=== PATIENT | female | born 1975 | race Caucasian/White ===

== ENCOUNTER 2021-03-12 07:44 | Outpatient (REF) | payer MEDICARE, MEDICAID, SELFPAY ==
[2021-03-12 09:13] LABS: Alanine Aminotransferase 12 U/L (0-31); Cholesterol 180 mg/dL; HDL Cholesterol 67 mg/dL; LDL Cholesterol Calculated 83 mg/dl; Triglycerides 150 mg/dL
[2021-03-12 09:33] LABS: Vitamin D 25-OH Total 33.2 ng/mL (>30)
[2021-03-14 08:57] LABS: Vitamin B12 684 pg/mL (200-900)
== END 2021-03-12 07:45 | disposition home or self-care (01) ==
LOC: HO.LAB 07:44
PROVIDERS: PCP Internal Medicine; Visit Provider Internal Medicine
DX: Z00.00 Encounter for general adult medical examination without abnormal findings (principal); M85.80 Other specified disorders of bone density and structure, unspecified site; G40.909 Epilepsy, unspecified, not intractable, without status epilepticus
CPT/HCPCS: 36415; 80061; 82306; 82607; 84460

== ENCOUNTER 2021-12-24 20:16 | Emergency (ER) | payer MEDICARE, MEDICAID, SELFPAY ==
[2021-12-24 20:42] VITALS: BP 150/75; PULSE 82; RESP 16; TEMP 36.9; O2SAT 99; BMI 29.1
--- NOTE | 2021-12-24 22:27 | ED.GENADULT ---
HPI - General Adult General Chief complaint: Dental/Oral Stated complaint: tongue and throat pain Time Seen by Provider: 12/24/21 22:24 Source: patient Mode of arrival: ambulatory History of Present Illness HPI narrative: 46-year-old female was brought in from alf for evaluation of tongue and throat pain that she describes as surrounding the entire tongue, but denies any fevers, chills and denies any swelling/lips/face and states that she is able swallow without pain and denies any difficulty with breathing. Related Data Allergies Allergy/AdvReac Type Severity Reaction Status Date / Time amitriptyline Allergy Unknown Verified 12/24/21 20:51 amoxicillin Allergy Unknown Verified 12/24/21 20:51 budesonide Allergy Unknown Verified 12/24/21 20:51 [From Rhinocort Allergy] cheese Allergy Unknown Verified 12/24/21 20:51 Chocolate Allergy Unknown Verified 12/24/21 20:51 cigarette smoke Allergy Unknown Verified 12/24/21 20:51 ciprofloxacin [From Cipro] Allergy Unknown Verified 12/24/21 20:51 clarithromycin [From Biaxin] Allergy Unknown Verified 12/24/21 20:51 clonazepam [From Klonopin] Allergy Unknown Verified 12/24/21 20:51 fluticasone [From Flonase] Allergy Unknown Verified 12/24/21 20:51 monosodium glutamate [MSG] Allergy Unknown Verified 12/24/21 20:51 nut - unspecified Allergy Unknown Verified 12/24/21 20:51 Penicillins Allergy Unknown Verified 12/24/21 20:51 phenobarbital Allergy Unknown Verified 12/24/21 20:51 Seasonal Allergies Allergy Unknown Verified 12/24/21 20:51 strawberry Allergy Unknown Verified 12/24/21 20:51 Sulfa (Sulfonamide Allergy Unknown Verified 12/24/21 20:51 Antibiotics) sulfamethoxazole Allergy Unknown Verified 12/24/21 20:51 [From Bactrim] trimethoprim [From Bactrim] Allergy Unknown Verified 12/24/21 20:51 Review of Systems Review of Systems: Pertinent positives and negatives as stated in HPI 10 point review of systems is otherwise negative. PMFSH Past Medical History Source: nursing notes reviewed Social History Social History Advance Directives: No Advance Directives Information Provided: No Physical Exam ED Vital Signs: Vital Signs - 24 hr 04/16/22 20:42 Temperature 98.5 F Pulse Rate 82 Respiratory Rate 16 Blood Pressure 150/75 H Pulse Oximetry 99 BMI result Body Mass Index 29.1 VITAL SIGNS: Reviewed. GENERAL: Well developed, well nourished, in no acute distress. HEAD: Normocephalic/atraumatic EYES: PERRLA, EOMI EARS: Ext canals without abnormality OROPHARYNX: no oral lesions noted, posterior pharynx clear and non-erythematous without noted tonsillar enlargement/erythema/exudates, no evidence of oral thrush, no trismus NECK: Supple, no adenopathy LUNGS: Normal breath sounds, no stridor, no tachypnea/wheeze/rhonchi/rales. SpO2<99> CARDIOVASCULAR: Regular rate and rhythm without noted murmurs ABDOMEN: Soft, non-tender, non-distended with bowel sounds. SKIN: Inspection of the skin reveals no rashes NEUROLOGIC: Alert and Strength and sensation to light touch were grossly intact x 4. Course Course Course Narrative: 46-year-old female with history and clinical presentation mildly suggestive of pharyngitis and doubt foreign body, oral candidiasis, dental. Review of all investigations negative for acute findings and patient was discharged home in stable condition with instructions to do saline gargles. Medical Decision Making Lab Data Labs: Lab Results 12/24/21 Range/Units 22:33 S. pyogenes GrpA JIMMIE Negative (Negative) Discharge Plan Discharge Clinical Impression: Pharyngitis Patient Disposition: Home, Self-Care Instructions: Pharyngitis (ED) Additional Instructions: 1. Resume all home medications as prescribed. 2. Recommend saline gargles, this can be mixed by adding table salt to warm tap water and gargling for 5-10 minutes. 3. Follow-up with your primary care provider in the next 2-3 days. Return to the ER for worsening symptoms. Referrals: Jayden Vergara MD [Primary Care Provider] -
[2021-12-24] MEDS: Acetaminophen 325 MG TABLET 975 MG PO (22:34)
[2021-12-24 22:47] LABS: Strep A Nucleic Acid Negative (Negative)
== END 2021-12-24 23:12 | disposition home or self-care (01) ==
PROVIDERS: Emergency Provider Student in an Organized Health Care Education/Training Program; PCP Internal Medicine
DX: J02.9 Acute pharyngitis, unspecified (principal)
CPT/HCPCS: 36415; 87651; 99283

== ENCOUNTER 2022-01-01 18:46 | Inpatient (IN) | payer MEDICARE, MEDICAID, SELFPAY ==
--- NOTE | 2022-01-01 19:10 | ED.DIZZY ---
HPI - Dizziness General Chief Complaint: Dizziness Stated Complaint: DIZZY W/FALLS,NO INJURY PER EMS Time Seen by Provider: 01/01/22 19:10 Source: patient Mode of arrival: EMS History of Present Illness HPI Narrative: Patient mentally challenged with history of seizures, cerebral palsy on Tegretol and Depakote were apparently walking and felt dizzy no fall no headache no nausea no vomiting no fever no cough otherwise patient feeling is feeling okay Related Data Home Medications Medication Instructions Recorded Confirmed benztropine 0.5 mg tablet 1 tab PO DAILY 01/01/22 01/01/22 calcium carbonate 200 mg calcium 500 mg PO BID 01/01/22 01/01/22 (500 mg) chewable tablet (Calcium Antacid) carbamazepine 200 mg tablet 200 mg PO DAILY@1400 01/01/22 01/01/22 (Tegretol) carbamazepine 200 mg tablet 300 mg PO QAM 01/01/22 01/01/22 (Tegretol) carbamazepine 200 mg tablet 500 mg PO BEDTIME 01/01/22 01/01/22 (Tegretol) cholecalciferol (vitamin D3) 50 1 cap PO DAILY 01/01/22 01/01/22 mcg (2,000 unit) capsule cholestyramine-aspartame 4 gram 3 ea PO DAILY 01/01/22 01/01/22 oral powder (Cholestyramine Light) divalproex 250 mg tablet,delayed 2,000 mg PO TID 01/01/22 01/01/22 release escitalopram oxalate 5 mg tablet 1 tab PO DAILY 01/01/22 01/01/22 lacosamide 100 mg tablet (Vimpat) 100 mg PO BEDTIME 01/01/22 01/01/22 lorazepam 1 mg tablet 0.5 mg PO DAILY@1400 01/01/22 01/01/22 lorazepam 1 mg tablet 1 tab PO QAM 01/01/22 01/01/22 lorazepam 1 mg tablet 1.5 mg PO BEDTIME 01/01/22 01/01/22 olanzapine 2.5 mg tablet 1 tab PO BEDTIME 01/01/22 01/01/22 omeprazole 20 mg capsule,delayed 1 cap PO DAILY 01/01/22 01/01/22 release Allergies Allergy/AdvReac Type Severity Reaction Status Date / Time amitriptyline Allergy Unknown Verified 12/24/21 20:51 amoxicillin Allergy Unknown Verified 12/24/21 20:51 budesonide Allergy Unknown Verified 12/24/21 20:51 [From Rhinocort Allergy] cheese Allergy Unknown Verified 12/24/21 20:51 Chocolate Allergy Unknown Verified 12/24/21 20:51 cigarette smoke Allergy Unknown Verified 12/24/21 20:51 ciprofloxacin [From Cipro] Allergy Unknown Verified 12/24/21 20:51 clarithromycin [From Biaxin] Allergy Unknown Verified 12/24/21 20:51 clonazepam [From Klonopin] Allergy Unknown Verified 12/24/21 20:51 fluticasone [From Flonase] Allergy Unknown Verified 12/24/21 20:51 monosodium glutamate [MSG] Allergy Unknown Verified 12/24/21 20:51 nut - unspecified Allergy Unknown Verified 12/24/21 20:51 Penicillins Allergy Unknown Verified 12/24/21 20:51 phenobarbital Allergy Unknown Verified 12/24/21 20:51 Seasonal Allergies Allergy Unknown Verified 12/24/21 20:51 strawberry Allergy Unknown Verified 12/24/21 20:51 Sulfa (Sulfonamide Allergy Unknown Verified 12/24/21 20:51 Antibiotics) sulfamethoxazole Allergy Unknown Verified 12/24/21 20:51 [From Bactrim] trimethoprim [From Bactrim] Allergy Unknown Verified 12/24/21 20:51 Review of Systems Review of Systems: Yes all other systems are reviewed and are negative [facility] Social History Social History Advance Directives: No Advance Directives Information Provided: No Physical Exam Vital Signs: Vital Signs: Last Vital Signs Temp 98.9 F 01/01/22 20:25 Pulse 77 01/01/22 20:25 Resp 17 01/01/22 20:25 BP 145/65 H 01/01/22 20:25 Pulse Ox 97 01/01/22 20:25 BMI result Body Mass Index 25.0 Appearance: Alert. And awake mentally challenged Eyes: PERRLA, No Nystagmus ENT: Pharynx normal. Oral Mucosa moist Neck: Normal inspection. Neck supple. CVS: Normal heart rate and rhythm. Pulses normal. Respiratory: No respiratory distress. Equal air entry bilateral, no wheezing/rales/rhonchi Abdomen: Soft and nontender. Bowel sounds are present, Skin: Skin warm and dry. Normal skin color. Normal skin turgor. Extremities: No lower extremity edema. No calf tenderness Neuro: Oriented and awake at baseline No motor deficit. No sensory deficit.No cerebellar signs , cranial nerves II-XII intact MDM - Dizziness MDM Narrative Medical decision making narrative: Patient nonspecific dizziness lab workup shows hypotonic hyponatremia with sodium level of 125 likely [facility] will admit patient unable to get the stability tonight from our lab sample will be sent out. Patient does say that she drinks a lot during daytime will have fluid restrictions for now Differential Diagnosis Differential diagnosis: Likely adverse reaction to drug and orthostatic hypotension Lab Data Attestation: I reviewed the patient's lab results. Result diagrams: 01/01/22 20:18 01/01/22 20:18 Labs: Lab Results 01/01/22 01/01/22 01/01/22 Range/Units 20:18 20:18 20:18 WBC 6.7 (4.8-10.8) X10*3/uL RBC 3.43 L (4.20-5.50) X10*6/uL Hgb 11.3 L (12.0-16.0) g/dl Hct 31.5 L (37.0-47.0) % MCV 91.8 (80.0-98.0) fL MCH 32.9 (27.0-33.0) pg MCHC 35.9 H (31.0-35.0) g/dl RDW 12.4 (11.0-16.0) % Plt Count 166 (160-400) X10*3/uL MPV 10.4 (9.4-12.3) fL Immature Gran % (Auto) 0.3 (0.0-0.4) % Neut % (Auto) 22.7 L (45-73) % Lymph % (Auto) 68.1 H (20-40) % [place] % (Auto) 7.9 (2-11) % Eos % (Auto) 0.6 (0-4) % Baso % (Auto) 0.4 (0-2) % Lymph # (Auto) 4.6 (1.2-4.9) X10*3/uL [place] # (Auto) 0.5 (0.1-1.2) X10*3/uL Eos # (Auto) 0.0 (0.0-0.4) X10*3/uL Baso # (Auto) 0.0 (0.0-0.2) X10*3/uL Abs Immat Gran (auto) 0.02 (0.00-0.03) X10*3/uL Absolute Neuts (auto) 1.5 L (2.0-8.3) x10*3/uL Absolute Nucleated RBC 0.000 (0.0-0.012) X10*3/uL Nucleated RBC % (auto) 0.0 (0.0-0.2) /100WBC Smear Tech's Comments VERIFIED Sodium 125 L (135-145) mmol/L Potassium 4.4 (3.3-5.1) mmol/L Chloride 92 L (96-108) mmol/L Carbon Dioxide 27 (22-29) mmol/L Anion Gap 10 L (12-20) BUN 11 (9-16) mg/dL Creatinine 0.59 (0.5-1.4) mg/dL Estim Creat Clear Calc 109.5 Estimated GFR > 60 Random Glucose 97 (60-115) mg/dL Osmolality 262 L (281-305) mosm/kg Calcium 8.5 (8.4-10.2) mg/dL Total Bilirubin 0.2 (0.0-1.0) mg/dL AST 8 (5-31) U/L ALT 9 (0-31) U/L Alkaline Phosphatase 50 (39-117) U/L Total Protein 5.9 L (6.5-8.0) g/dL Albumin 3.7 (3.5-5.0) g/dL Urine Color Urine Appearance Urine pH (5.0-8.0) Ur Specific Collins (1.005-1.025) Urine Protein (NEG-TRACE) MG/DL Urine Glucose (UA) (NEG) MG/DL Urine Ketones (NEG) MG/DL Urine Blood (NEG) Urine Nitrite (NEG) Ur Leukocyte Esterase (NEG) Ur Random Sodium mmol/L Valproic Acid 97.1 (50.0-100.0) mcg/mL Carbamazepine 7.2 (5.0-12.0) mcg/mL COVID-19 (JAMESON) (Negative) COVID-19 Clin Com 01/01/22 01/01/22 01/01/22 Range/Units 21:59 21:59 22:33 WBC (4.8-10.8) X10*3/uL RBC (4.20-5.50) X10*6/uL Hgb (12.0-16.0) g/dl Hct (37.0-47.0) % MCV (80.0-98.0) fL MCH (27.0-33.0) pg MCHC (31.0-35.0) g/dl RDW (11.0-16.0) % Plt Count (160-400) X10*3/uL MPV (9.4-12.3) fL Immature Gran % (Auto) (0.0-0.4) % Neut % (Auto) (45-73) % Lymph % (Auto) (20-40) % [place] % (Auto) (2-11) % Eos % (Auto) (0-4) % Baso % (Auto) (0-2) % Lymph # (Auto) (1.2-4.9) X10*3/uL [place] # (Auto) (0.1-1.2) X10*3/uL Eos # (Auto) (0.0-0.4) X10*3/uL Baso # (Auto) (0.0-0.2) X10*3/uL Abs Immat Gran (auto) (0.00-0.03) X10*3/uL Absolute Neuts (auto) (2.0-8.3) x10*3/uL Absolute Nucleated RBC (0.0-0.012) X10*3/uL Nucleated RBC % (auto) (0.0-0.2) /100WBC Smear Tech's Comments Sodium (135-145) mmol/L Potassium (3.3-5.1) mmol/L Chloride (96-108) mmol/L Carbon Dioxide (22-29) mmol/L Anion Gap (12-20) BUN (9-16) mg/dL Creatinine (0.5-1.4) mg/dL Estim Creat Clear Calc Estimated GFR Random Glucose (60-115) mg/dL Osmolality (281-305) mosm/kg Calcium (8.4-10.2) mg/dL Total Bilirubin (0.0-1.0) mg/dL AST (5-31) U/L ALT (0-31) U/L Alkaline Phosphatase (39-117) U/L Total Protein (6.5-8.0) g/dL Albumin (3.5-5.0) g/dL Urine Color YELLOW Urine Appearance CLEAR Urine pH 7.0 (5.0-8.0) Ur Specific [place] 1.010 (1.005-1.025) Urine Protein NEG (NEG-TRACE) MG/DL Urine Glucose (UA) NEG (NEG) MG/DL Urine Ketones NEG (NEG) MG/DL Urine Blood NEG (NEG) Urine Nitrite NEG (NEG) Ur Leukocyte Esterase NEG (NEG) Ur Random Sodium 72.0 mmol/L Valproic Acid (50.0-100.0) mcg/mL Carbamazepine (5.0-12.0) mcg/mL COVID-19 (JAMESON) Negative (Negative) COVID-19 Clin Com See Note ECG Data Attestation: I personally reviewed and interpreted this ECG as follows: Interpretation: Normal sinus rhythm heart rate 72 beats per minute normal intervals normal axis no acute ST-T changes impression normal EKG Discharge Plan Discharge Clinical Impression: Acute hyponatremia, Dizziness Patient Disposition: Admitted As Inpatient
[2022-01-01 20:08] VITALS: BMI 25.0
[2022-01-01 20:25] VITALS: BP 145/65; PULSE 77; RESP 17; TEMP 37.2; O2SAT 97
[2022-01-01] MEDS: Meclizine HCl 25 MG TABLET PO (20:31)
[2022-01-01 20:33] LABS: Basophils Percent Auto 0.4 % (0-2); Eosinophils Percent Auto 0.6 % (0-4); Hematocrit 31.5 % (37.0-47.0); Hemoglobin 11.3 g/dl (12.0-16.0); Imm Gran Abs Auto 0.02 X10*3/uL (0.00-0.03); Imm Gran Pct Auto 0.3 % (0.0-0.4); Lymphocytes Absolute Auto 4.6 X10*3/uL (1.2-4.9); Lymphocytes Percent Auto 68.1 % (20-40); MANUAL DIFF FLAG SCAN; Mean Corpuscular HGB Conc 35.9 g/dl (31.0-35.0); Mean Corpuscular Hemoglobin 32.9 pg (27.0-33.0); Mean Corpuscular Volume 91.8 fL (80.0-98.0); Mean Platelet Volume 10.4 fL (9.4-12.3); Monocytes Absolute Auto 0.5 X10*3/uL (0.1-1.2); Monocytes Percent Auto 7.9 % (2-11); Neutrophils Absolute Auto 1.5 x10*3/uL (2.0-8.3); Neutrophils Percent Auto 22.7 % (45-73); Platelet Count 166 X10*3/uL (160-400); Red Blood Count 3.43 X10*6/uL (4.20-5.50); Red Cell Distribution Width 12.4 % (11.0-16.0); SCAN SMEAR FLAG 1; White Blood Count 6.7 X10*3/uL (4.8-10.8)
[2022-01-01 20:52] LABS: Alanine Aminotransferase 9 U/L (0-31); Albumin Level 3.7 g/dL (3.5-5.0); Alkaline Phosphatase 50 U/L (39-117); Anion Gap 10 (12-20); Aspartate Amino Transferase 8 U/L (5-31); Bilirubin Total 0.2 mg/dL (0.0-1.0); Blood Urea Nitrogen 11 mg/dL (9-16); Calcium 8.5 mg/dL (8.4-10.2); Carbon Dioxide 27 mmol/L (22-29); Chloride 92 mmol/L (96-108); Creatinine Clr Calc Pharmacy 109.5; Estimated Glomerular Filt Rate > 60; Glucose Random 97 mg/dL (60-115); Potassium 4.4 mmol/L (3.3-5.1); Sodium 125 mmol/L (135-145); Total Protein 5.9 g/dL (6.5-8.0)
[2022-01-01 20:57] LABS: Carbamazepine Tegretol 7.2 mcg/mL (5.0-12.0); Valproate 97.1 mcg/mL (50.0-100.0)
[2022-01-01 20:59] LABS: SLIDE REVIEW VERIFIED
[2022-01-01 22:05] LABS: Osmolality, Serum 262 mosm/kg (281-305)
[2022-01-01 22:06] LABS: Appearance Urine CLEAR; Color Urine YELLOW; Glucose Urine UA NEG (NEG); Leukocyte Esterase Urine NEG (NEG); Nitrite Urine NEG (NEG); Urine Blood NEG (NEG); Urine Ketones NEG (NEG); Urine Protein NEG (NEG-TRACE)
--- NOTE | 2022-01-01 22:11 | ECG_ITS ---
Test Reason : low sodium Blood Pressure : / mmHG Vent. Rate : 072 BPM Atrial Rate : 072 BPM P-R Int : 178 ms QRS Dur : 082 ms QT Int : 374 ms P-R-T Axes : 045 046 060 degrees QTc Int : 409 ms Normal sinus rhythm Normal ECG No previous ECGs available Referred By: Raymon Alvarez Electronically Signed By:DAVE GARCÍA
[2022-01-01 23:14] LABS: COVID-19 Test Negative (Negative)
[2022-01-02] VITALS (9 sets, daily range): BP systolic 100–170; BP diastolic 55–89; PULSE 61–104; RESP 16–87; TEMP 36.3–36.8; O2SAT 93–99
[2022-01-02] MEDS: OLANZapine 2.5 MG TABLET PO ×2 (00:21→22:02)
[2022-01-02] MEDS: LORazepam 0.5 MG TABLET 1.5 MG PO ×2 (00:22→22:04)
[2022-01-02] MEDS: Divalproex Sodium 500 MG TABLET.DR 2000 MG PO ×4 (00:23→22:03)
[2022-01-02] MEDS: Enoxaparin Sodium 40 MG/0.4 ML SYRINGE SUBCUT ×2 (00:23→23:21)
[2022-01-02] MEDS: carBAMazepine 200 MG TABLET 500 MG PO ×2 (01:07→22:01)
--- NOTE | 2022-01-02 04:53 | PC.NURSE ---
I assumed nursing care of Kylie upon her arrival to bed 21 from EMS from local halfway for evaluation of lightheadedness/dizziness - primarily upon changing positions. On arrival she is alert, oriented to person and place but not to time - consistent with her baseline per halfway staff at bedside. She makes eye contact with Rn and is calm and cooperative. Respirations are non-labored, room air sat's 95% or better, no cyanosis. SHe has ambulated to and from the bathrpoom with one stand by assist with slow and steady gait. No nausea. No vomiting. she has been taking PO fluids in ED (with meds) without difficulty. [facility] staff has remained at the bedside. Pt has voided multiple times - in the first three hours of her ER visit I believe she ambulated to the bathroom a total of 6 times to void, each time voiding 'a lot per the pt. We will continue to monitor Kylie.
[2022-01-02] MEDS: LORazepam 2 MG/ML VIAL 0.5 MG IVPUSH (06:03)
--- NOTE | 2022-01-02 06:50 | PM.IMHP ---
History of Present Illness Date of Service: 01/01/22 Chief Complaint: Weakness 46-year-old female with history of cerebral palsy, history of seizures presents to the hospital with complaints of some dizziness and weakness. According to her staff at bedside, they were playing in the park, patient was goofing around, dancing when she tore old and fell. They went home, and on the way home patient complained of feeling weak and her legs gave out and buckled and therefore patient was brought into the hospital. Patient currently is alert, oriented to self and place, she has no acute complaints including no headache, no change in vision, no chest pain palpitations, no dizziness, no abdominal pain nausea or vomiting, no diarrhea constipation, no urinary symptoms and no lower extremity edema. On arrival to the ED patient hemodynamically stable with no significant abnormal vitals Labs are significant for hemoglobin of 11.3, hematocrit 31.5, sodium of 125, potassium 4.4, serum osmolality of 262, and urine osmolality pending. Urine random sodium of 72. When I asked more extensive history on oral intake, patient and her staff at bedside reports that she drinks more than 8 0.5 L bottles of water daily as well as 2 large bottles of juice. Patient will be admitted for further management of her hyponatremia Review of Systems Review of Systems: Yes all other systems are reviewed and are negative [facility] Medical History (Updated 01/02/22 @ 06:53 by Elizabeth Colorado MD) Cerebral palsy Seizure disorder Family History (Updated 01/02/22 @ 06:53 by Elizabeth Colorado MD) Other No family history of coronary artery disease Surgical History (Updated 01/02/22 @ 06:53 by Elizabeth Colorado MD) History of hysterectomy Social History (Updated 01/02/22 @ 06:54 by Elizabeth Colorado MD) Housing: Other Housing Other:: Lives in a alf Alcohol intake: never Patient Tobacco Use Status: Never used Tobacco Use of substances other than those prescribed or required for medical reasons: No Advance Directives: No Advance Directives Information Provided: No Meds Allergies Allergy/AdvReac Type Severity Reaction Status Date / Time amitriptyline Allergy Unknown Verified 12/24/21 20:51 amoxicillin Allergy Unknown Verified 12/24/21 20:51 budesonide Allergy Unknown Verified 12/24/21 20:51 [From Rhinocort Allergy] cheese Allergy Unknown Verified 12/24/21 20:51 Chocolate Allergy Unknown Verified 12/24/21 20:51 cigarette smoke Allergy Unknown Verified 12/24/21 20:51 ciprofloxacin [From Cipro] Allergy Unknown Verified 12/24/21 20:51 clarithromycin [From Biaxin] Allergy Unknown Verified 12/24/21 20:51 clonazepam [From Klonopin] Allergy Unknown Verified 12/24/21 20:51 fluticasone [From Flonase] Allergy Unknown Verified 12/24/21 20:51 monosodium glutamate [MSG] Allergy Unknown Verified 12/24/21 20:51 nut - unspecified Allergy Unknown Verified 12/24/21 20:51 Penicillins Allergy Unknown Verified 12/24/21 20:51 phenobarbital Allergy Unknown Verified 12/24/21 20:51 Seasonal Allergies Allergy Unknown Verified 12/24/21 20:51 strawberry Allergy Unknown Verified 12/24/21 20:51 Sulfa (Sulfonamide Allergy Unknown Verified 12/24/21 20:51 Antibiotics) sulfamethoxazole Allergy Unknown Verified 12/24/21 20:51 [From Bactrim] trimethoprim [From Bactrim] Allergy Unknown Verified 12/24/21 20:51 Active Medications: Current Medications Acetaminophen (Acetaminophen 325 Mg Tablet) 650 mg PO Q6H PRN PRN Reason: Pain, Mild (Pain Scale 1-3) Benztropine Mesylate (Benztropine Mesylate 0.5 Mg Tablet) 0.5 mg PO DAILY [facility] Calcium Carbonate (Calcium Carbonate 500 Mg Tablet) 500 mg PO BID [facility] Carbamazepine (Carbamazepine 200 Mg Tablet) 200 mg PO DAILY@1400 [facility] Carbamazepine (Carbamazepine 200 Mg Tablet) 300 mg PO DAILY [facility] Last Admin: 01/02/22 00:31 Dose: Not Given Documented by: Carbamazepine (Carbamazepine 200 Mg Tablet) 500 mg PO BEDTIME [facility] Last Admin: 01/02/22 01:07 Dose: 500 mg Documented by: Cholestyramine Resin (Cholestyramine (With Sugar) 4 Gm Powd.Pack) 4 gm PO DAILY [facility] Divalproex Sodium (Divalproex Sodium 500 Mg Tablet.Dr) 2,000 mg PO TID [facility] Last Admin: 01/02/22 00:23 Dose: 2,000 mg Documented by: Docusate Sodium (Docusate Sodium 100 Mg Capsule) 100 mg PO DAILY PRN PRN Reason: Constipation Enoxaparin Sodium (Enoxaparin Sodium 40 Mg/0.4 Ml Syringe) 40 mg SUBCUT Q24H [facility] Last Admin: 01/02/22 00:23 Dose: 40 mg Documented by: Escitalopram Oxalate (Escitalopram Oxalate 5 Mg Tablet) 5 mg PO DAILY [facility] Lacosamide (Lacosamide 100 Mg Tablet) 100 mg PO BEDTIME [facility] Lorazepam (Lorazepam 0.5 Mg Tablet) 0.5 mg PO DAILY@1400 [facility] Lorazepam (Lorazepam 1 Mg Tablet) 1 mg PO DAILY [facility] Last Admin: 01/02/22 00:32 Dose: Not Given Documented by: Lorazepam (Lorazepam 0.5 Mg Tablet) 1.5 mg PO BEDTIME [facility] Last Admin: 01/02/22 00:22 Dose: 1.5 mg Documented by: Olanzapine (Olanzapine 2.5 Mg Tablet) 2.5 mg PO BEDTIME [facility] Last Admin: 01/02/22 00:21 Dose: 2.5 mg Documented by: Omeprazole (Omeprazole 20 Mg Capsule.Dr) 20 mg PO DAILY [facility] Ondansetron HCl (Ondansetron Hcl 4 Mg/2 Ml Vial) 4 mg IVPUSH Q8H PRN PRN Reason: Nausea and Vomiting Sodium Chloride (0.9 % Sodium Chloride Flush 3 Ml Syringe) 3 ml IVFLUSH QSHIFT [facility] Last Admin: 01/02/22 00:30 Dose: Not Given Documented by: Vitamin D (Cholecalciferol (Vitamin D3) 25 Mcg Tablet) 50 mcg PO DAILY [facility] Home Medications Medication Instructions Recorded Confirmed Last Taken Type benztropine 0.5 mg tablet 1 tab PO DAILY 01/01/22 01/01/22 Unknown History calcium carbonate 200 mg calcium 500 mg PO BID 01/01/22 01/01/22 Unknown History (500 mg) chewable tablet (Calcium Antacid) carbamazepine 200 mg tablet 200 mg PO DAILY@1400 01/01/22 01/01/22 Unknown History (Tegretol) carbamazepine 200 mg tablet 300 mg PO QAM 01/01/22 01/01/22 Unknown History (Tegretol) carbamazepine 200 mg tablet 500 mg PO BEDTIME 01/01/22 01/01/22 Unknown History (Tegretol) cholecalciferol (vitamin D3) 50 1 cap PO DAILY 01/01/22 01/01/22 Unknown History mcg (2,000 unit) capsule cholestyramine-aspartame 4 gram 3 ea PO DAILY 01/01/22 01/01/22 Unknown History oral powder (Cholestyramine Light) divalproex 250 mg tablet,delayed 2,000 mg PO TID 01/01/22 01/01/22 Unknown History release escitalopram oxalate 5 mg tablet 1 tab PO DAILY 01/01/22 01/01/22 Unknown History lacosamide 100 mg tablet (Vimpat) 100 mg PO BEDTIME 01/01/22 01/01/22 Unknown History lorazepam 1 mg tablet 0.5 mg PO DAILY@1400 01/01/22 01/01/22 Unknown History lorazepam 1 mg tablet 1 tab PO QAM 01/01/22 01/01/22 Unknown History lorazepam 1 mg tablet 1.5 mg PO BEDTIME 01/01/22 01/01/22 Unknown History olanzapine 2.5 mg tablet 1 tab PO BEDTIME 01/01/22 01/01/22 Unknown History omeprazole 20 mg capsule,delayed 1 cap PO DAILY 01/01/22 01/01/22 Unknown History release Physical Exam Vital Signs and Narrative: Vital Signs: Last Vital Signs Temp 98.9 F 01/01/22 20:25 Pulse 76 01/02/22 06:07 Resp 19 01/02/22 06:07 BP 134/85 01/02/22 06:07 Pulse Ox 95 01/02/22 06:07 BMI result Body Mass Index 25.0 Const: Other: Patient awake alert, clinically appears happy smiling, laughing, conversing with her staff at bedside, she is oriented to self General: cooperative and no acute distress Eyes: General: appearance normal, both eyes and all related structures Pupils: Equal, round and reactive pupils present Resp: Effort & Inspection: normal respiratory effort Auscultation: clear to auscultation bilaterally Cardio: Rate: regular rate Rhythm: regular rhythm GI: Palpation (GI): Soft to palpation Auscultation: normal bowel sounds Skin: General skin exam: no rashes or lesions noted Neuro: Cranial nerves: Yes Equal, round and reactive pupils present Extrem: General: Yes normal to inspection and Yes no pedal edema Results Labs CBC and Chem 7: 01/01/22 20:18 01/01/22 20:18 Labs: Laboratory Results - last 24 hr 01/01/22 01/01/22 01/01/22 20:18 20:18 20:18 MCV 91.8 MCH 32.9 MCHC 35.9 H RDW 12.4 Plt Count 166 MPV 10.4 Immature Gran % (Auto) 0.3 Neut % (Auto) 22.7 L Lymph % (Auto) 68.1 H [place] % (Auto) 7.9 Eos % (Auto) 0.6 Baso % (Auto) 0.4 Lymph # (Auto) 4.6 [place] # (Auto) 0.5 Eos # (Auto) 0.0 Baso # (Auto) 0.0 Abs Immat Gran (auto) 0.02 Absolute Neuts (auto) 1.5 L Absolute Nucleated RBC 0.000 Nucleated RBC % (auto) 0.0 Smear Tech's Comments VERIFIED Sodium 125 L Anion Gap 10 L Estim Creat Clear Calc 109.5 Estimated GFR > 60 Random Glucose 97 Osmolality 262 L Calcium 8.5 Total Bilirubin 0.2 AST 8 ALT 9 Alkaline Phosphatase 50 Total Protein 5.9 L Albumin 3.7 Urine Color Urine Appearance Urine pH Ur Specific [place] Urine Protein Urine Glucose (UA) Urine Ketones Urine Blood Urine Nitrite Ur Leukocyte Esterase Ur Random Sodium Valproic Acid 97.1 Carbamazepine 7.2 COVID-19 ([facility]) COVID-19 Clin Com 01/01/22 01/01/22 01/01/22 21:59 21:59 22:33 MCV MCH MCHC RDW Plt Count MPV Immature Gran % (Auto) Neut % (Auto) Lymph % (Auto) [place] % (Auto) Eos % (Auto) Baso % (Auto) Lymph # (Auto) [place] # (Auto) Eos # (Auto) Baso # (Auto) Abs Immat Gran (auto) Absolute Neuts (auto) Absolute Nucleated RBC Nucleated RBC % (auto) Smear Tech's Comments Sodium Anion Gap Estim Creat Clear Calc Estimated GFR Random Glucose Osmolality Calcium Total Bilirubin AST ALT Alkaline Phosphatase Total Protein Albumin Urine Color YELLOW Urine Appearance CLEAR Urine pH 7.0 Ur Specific [place] 1.010 Urine Protein NEG Urine Glucose (UA) NEG Urine Ketones NEG Urine Blood NEG Urine Nitrite NEG Ur Leukocyte Esterase NEG Ur Random Sodium 72.0 Valproic Acid Carbamazepine COVID-19 ([facility]) Negative COVID-19 Clin Com See Note Assessment and Plan (1) Acute hyponatremia: Status: Acute Plan 46-year-old female with past medical history of seizure disorder as well as cerebral palsy presents to the hospital with weakness found to have hyponatremia # acute hyponatremia - likely secondary to increased water intake - patient and staff report the patient has been drinking >10 cups of water/juice daily - will place on PO restriction to 1200 - nephrology consuled - BMP q4H , adjust plan accordingly - pending UA osmolality # Seizure disorder - continue home meds # Cerebral plasy - continue home meds DVT ppx: Lovenox give hyponatremia, pt will require minimum medically necessary 2 night hospital stay for further management and monitoring Quality Stroke Does the patient have a stroke diagnosis?: No VTE Prior VTE?: No VTE Risk Level:: Medical - moderate - high VTE Device Contraindication: Treatment Not Indicated VTE Drug Contraindication: N/A - Med Ordered
[2022-01-02 07:04] LABS: Osmolality Urine 285 mosm/kg (373-1093)
[2022-01-02 07:32] LABS: Anion Gap 13 (12-20); Blood Urea Nitrogen 8 mg/dL (9-16); Calcium 9.5 mg/dL (8.4-10.2); Carbon Dioxide 28 mmol/L (22-29); Chloride 95 mmol/L (96-108); Creatinine Clr Calc Pharmacy 111.4; Estimated Glomerular Filt Rate > 60; Glucose Random 86 mg/dL (60-115); Potassium 4.3 mmol/L (3.3-5.1); Sodium 132 mmol/L (135-145)
[2022-01-02 07:33] LABS: Anion Gap 12 (12-20); Blood Urea Nitrogen 8 mg/dL (9-16); Calcium 9.3 mg/dL (8.4-10.2); Carbon Dioxide 28 mmol/L (22-29); Chloride 96 mmol/L (96-108); Creatinine Clr Calc Pharmacy 111.4; Estimated Glomerular Filt Rate > 60; Glucose Random 86 mg/dL (60-115); Potassium 4.3 mmol/L (3.3-5.1); Sodium 132 mmol/L (135-145)
--- NOTE | 2022-01-02 07:57 | HO.PM.IMPN ---
Subjective Subjective Date of Service: 01/02/22 Review of Systems Follow up Hyponatremia Feels fine no pain feels thirsty Physical Exam Vital Signs: Vital Signs: Last Vital Signs Temp 98.0 F 01/02/22 07:18 Pulse 83 01/02/22 07:18 Resp 16 01/02/22 07:18 BP 135/89 01/02/22 07:18 Pulse Ox 96 01/02/22 07:18 BMI result Body Mass Index 25.0 Appearing in no acute distress lung sounds are clear to auscultation heart regular rate rhythm, clear S1, S2 positive bowel sounds, abdomen is soft, nontender neuro patient is alert x3, no focal deficits Objective Data Active Medications Acetaminophen (Acetaminophen 325 Mg Tablet) 650 mg PO Q6H PRN PRN Reason: Pain, Mild (Pain Scale 1-3) Benztropine Mesylate (Benztropine Mesylate 0.5 Mg Tablet) 0.5 mg PO DAILY [facility] Calcium Carbonate (Calcium Carbonate 500 Mg Tablet) 500 mg PO BID [facility] Carbamazepine (Carbamazepine 200 Mg Tablet) 200 mg PO DAILY@1400 [facility] Carbamazepine (Carbamazepine 200 Mg Tablet) 300 mg PO DAILY [facility] Last Admin: 01/02/22 00:31 Dose: Not Given Documented by: RAMILA Non-Admin Reason: See Note Carbamazepine (Carbamazepine 200 Mg Tablet) 500 mg PO BEDTIME [facility] Last Admin: 01/02/22 01:07 Dose: 500 mg Documented by: RAMILA Cholestyramine Resin (Cholestyramine (With Sugar) 4 Gm Powd.Pack) 4 gm PO DAILY [facility] Divalproex Sodium (Divalproex Sodium 500 Mg Tablet.) 2,000 mg PO TID [facility] Last Admin: 01/02/22 00:23 Dose: 2,000 mg Documented by: RAMILA Docusate Sodium (Docusate Sodium 100 Mg Capsule) 100 mg PO DAILY PRN PRN Reason: Constipation Enoxaparin Sodium (Enoxaparin Sodium 40 Mg/0.4 Ml Syringe) 40 mg SUBCUT Q24H [facility] Last Admin: 01/02/22 00:23 Dose: 40 mg Documented by: RAMILA Escitalopram Oxalate (Escitalopram Oxalate 5 Mg Tablet) 5 mg PO DAILY [facility] Lacosamide (Lacosamide 100 Mg Tablet) 100 mg PO BEDTIME [facility] Lorazepam (Lorazepam 0.5 Mg Tablet) 0.5 mg PO DAILY@1400 [facility] Lorazepam (Lorazepam 1 Mg Tablet) 1 mg PO DAILY [facility] Last Admin: 01/02/22 00:32 Dose: Not Given Documented by: RAMILA Non-Admin Reason: See Note Lorazepam (Lorazepam 0.5 Mg Tablet) 1.5 mg PO BEDTIME [facility] Last Admin: 01/02/22 00:22 Dose: 1.5 mg Documented by: RAMILA Olanzapine (Olanzapine 2.5 Mg Tablet) 2.5 mg PO BEDTIME [facility] Last Admin: 01/02/22 00:21 Dose: 2.5 mg Documented by: RAMILA Omeprazole (Omeprazole 20 Mg Capsule.Dr) 20 mg PO DAILY [facility] Ondansetron HCl (Ondansetron Hcl 4 Mg/2 Ml Vial) 4 mg IVPUSH Q8H PRN PRN Reason: Nausea and Vomiting Sodium Chloride (0.9 % Sodium Chloride Flush 3 Ml Syringe) 3 ml IVFLUSH QSHIFT [facility] Last Admin: 01/02/22 00:30 Dose: Not Given Documented by: RAMILA Non-Admin Reason: Previously Administered Vitamin D (Cholecalciferol (Vitamin D3) 25 Mcg Tablet) 50 mcg PO DAILY [facility] Labs CBC & Chem 7: 01/01/22 20:18 01/02/22 10:06 Labs: Laboratory Results - last 24 hr 01/01/22 01/01/22 01/01/22 20:18 20:18 20:18 MCV 91.8 MCH 32.9 MCHC 35.9 H RDW 12.4 Plt Count 166 MPV 10.4 Immature Gran % (Auto) 0.3 Neut % (Auto) 22.7 L Lymph % (Auto) 68.1 H [place] % (Auto) 7.9 Eos % (Auto) 0.6 Baso % (Auto) 0.4 Lymph # (Auto) 4.6 [place] # (Auto) 0.5 Eos # (Auto) 0.0 Baso # (Auto) 0.0 Abs Immat Gran (auto) 0.02 Absolute Neuts (auto) 1.5 L Absolute Nucleated RBC 0.000 Nucleated RBC % (auto) 0.0 Smear Tech's Comments VERIFIED Anion Gap 10 L Estim Creat Clear Calc 109.5 Estimated GFR > 60 Random Glucose 97 Osmolality 262 L Calcium 8.5 Total Bilirubin 0.2 AST 8 ALT 9 Alkaline Phosphatase 50 Total Protein 5.9 L Albumin 3.7 Urine Color Urine Appearance Urine pH Ur Specific [place] Urine Protein Urine Glucose (UA) Urine Ketones Urine Blood Urine Nitrite Ur Leukocyte Esterase Urine Osmolality Ur Random Sodium Valproic Acid 97.1 Carbamazepine 7.2 COVID-19 ([facility]) COVID-19 Clin Com 01/01/22 01/01/22 01/01/22 21:59 21:59 21:59 MCV MCH MCHC RDW Plt Count MPV Immature Gran % (Auto) Neut % (Auto) Lymph % (Auto) [place] % (Auto) Eos % (Auto) Baso % (Auto) Lymph # (Auto) [place] # (Auto) Eos # (Auto) Baso # (Auto) Abs Immat Gran (auto) Absolute Neuts (auto) Absolute Nucleated RBC Nucleated RBC % (auto) Smear Tech's Comments Anion Gap Estim Creat Clear Calc Estimated GFR Random Glucose Osmolality Calcium Total Bilirubin AST ALT Alkaline Phosphatase Total Protein Albumin Urine Color YELLOW Urine Appearance CLEAR Urine pH 7.0 Ur Specific [place] 1.010 Urine Protein NEG Urine Glucose (UA) NEG Urine Ketones NEG Urine Blood NEG Urine Nitrite NEG Ur Leukocyte Esterase NEG Urine Osmolality 285 L Ur Random Sodium 72.0 Valproic Acid Carbamazepine COVID-19 ([facility]) COVID-19 Clin Com 01/01/22 01/02/22 01/02/22 22:33 07:08 07:08 MCV MCH MCHC RDW Plt Count MPV Immature Gran % (Auto) Neut % (Auto) Lymph % (Auto) [place] % (Auto) Eos % (Auto) Baso % (Auto) Lymph # (Auto) [place] # (Auto) Eos # (Auto) Baso # (Auto) Abs Immat Gran (auto) Absolute Neuts (auto) Absolute Nucleated RBC Nucleated RBC % (auto) Smear Tech's Comments Anion Gap 12 13 Estim Creat Clear Calc 111.4 111.4 Estimated GFR > 60 > 60 Random Glucose 86 86 Osmolality Calcium 9.3 D 9.5 Total Bilirubin AST ALT Alkaline Phosphatase Total Protein Albumin Urine Color Urine Appearance Urine pH Ur Specific [place] Urine Protein Urine Glucose (UA) Urine Ketones Urine Blood Urine Nitrite Ur Leukocyte Esterase Urine Osmolality Ur Random Sodium Valproic Acid Carbamazepine COVID-19 ([facility]) Negative COVID-19 Clin Com See Note Assessment and Plan (1) Acute hyponatremia: Status: Acute Plan 46-year-old female with past medical history of seizure disorder as well as cerebral palsy presents to the hospital with weakness found to have hyponatremia acute hyponatremia likely secondary to increased water intake patient and staff report the patient has been drinking >10 cups of water/juice daily will place on PO restriction to 1200 nephrology following BMP q4H , adjust plan accordingly pending UA osmolality Seizure disorder continue home meds Cerebral plasy continue home meds DVT ppx: Lovenox Attending Dr. Cowan Full code Patient requires continued hospitalization for monitoring of hyponatremia secondary to increased fluid intake Quality Stroke Does the patient have a stroke diagnosis?: No VTE Prior VTE?: No VTE Risk Level:: Medical - moderate - high VTE Device Contraindication: Treatment Not Indicated VTE Drug Contraindication: N/A - Med Ordered
[2022-01-02] MEDS: Benztropine Mesylate 0.5 MG TABLET PO (08:07)
[2022-01-02] MEDS: Cholecalciferol (Vitamin D3) 25 MCG TABLET 50 MCG PO (08:07)
[2022-01-02] MEDS: 0.9 % Sodium Chloride Flush 3 ML SYRINGE IVFLUSH ×3 (08:07→22:05)
[2022-01-02] MEDS: LORazepam 1 MG TABLET PO (08:07)
[2022-01-02] MEDS: Omeprazole 20 MG CAPSULE.DR PO (08:07)
[2022-01-02] MEDS: Escitalopram Oxalate 5 MG TABLET PO (08:07)
[2022-01-02] MEDS: carBAMazepine 200 MG TABLET 300 MG PO (08:07)
[2022-01-02] MEDS: Cholestyramine (With Sugar) 4 GM POWD.PACK PO (08:07)
--- NOTE | 2022-01-02 08:09 | PHA.MEDREC ---
Pharmacy Consult ? Medication Reconciliation Pharmacy has completed the medication reconciliation. No remarkable issues. Xin Cuadra, SheaD
[2022-01-02 10:27] LABS: Sodium 131 mmol/L (135-145)
[2022-01-02 10:33] LABS: Anion Gap 12 (12-20); Blood Urea Nitrogen 7 mg/dL (9-16); Calcium 9.9 mg/dL (8.4-10.2); Carbon Dioxide 30 mmol/L (22-29); Chloride 95 mmol/L (96-108); Creatinine Clr Calc Pharmacy 111.4; Estimated Glomerular Filt Rate > 60; Glucose Random 94 mg/dL (60-115); Potassium 4.7 mmol/L (3.3-5.1); Sodium 132 mmol/L (135-145)
--- NOTE | 2022-01-02 11:19 | PC.NURSE ---
rosmery nurse at [facility] [phone]
--- NOTE | 2022-01-02 11:27 | PM.CNNEP ---
History of Present Illness Reason for Consult Consult date: 01/02/22 Chief Complaint Chief complaint: Hyponatremia History of Present Illness Narrative: 46-year-old female with history of cerebral palsy, history of seizures presents to the hospital with complaints of some dizziness and weakness.? According to her staff at bedside, they were playing in the park, patient was goofing around, dancing when she tore old and fell.? They went home, and on the way home patient complained of feeling weak and her legs gave out and buckled and therefore patient was brought into the hospital.? Patient currently is alert, oriented to self and place, she has no acute complaints including no headache, no change in vision, no chest pain palpitations, no dizziness, no abdominal pain nausea or vomiting, no diarrhea constipation, no urinary symptoms and no lower extremity edema. On arrival to the ED patient hemodynamically stable with no significant abnormal vitals Labs are significant for hemoglobin of 11.3, hematocrit 31.5, sodium of 125, potassium 4.4, serum osmolality of 262, and urine osmolality pending.? Urine random sodium of 72.? When I asked more extensive history on oral intake, patient and her staff at bedside reports that she drinks more than 8 0.5 L bottles of water daily as well as 2 large bottles of juice. Review of Systems Review of Systems per HPI and dwayne. Unable to obtain from patient PMFSH Past Medical History Medical History (Updated 01/02/22 @ 06:53 by Elizabeth Colorado MD) Cerebral palsy Seizure disorder Family History Family History (Updated 01/02/22 @ 06:53 by Elizabeth Colorado MD) Other No family history of coronary artery disease Surgical History Surgical History (Updated 01/02/22 @ 06:53 by Elizabeth Colorado MD) History of hysterectomy Social History Social History (Updated 01/02/22 @ 06:54 by Elizabeth Colorado MD) Household Members: Other Housing: Other Housing Other:: Lives in a halfway Alcohol intake: never Patient Tobacco Use Status: Never used Tobacco service: No Current occupational status: disabled Meds Allergies Allergy/AdvReac Type Severity Reaction Status Date / Time amitriptyline Allergy Unknown Verified 12/24/21 20:51 amoxicillin Allergy Unknown Verified 12/24/21 20:51 budesonide Allergy Unknown Verified 12/24/21 20:51 [From Rhinocort Allergy] cheese Allergy Unknown Verified 04/16/22 20:51 Chocolate Allergy Unknown Verified 12/24/21 20:51 cigarette smoke Allergy Unknown Verified 12/24/21 20:51 ciprofloxacin [From Cipro] Allergy Unknown Verified 12/24/21 20:51 clarithromycin [From Biaxin] Allergy Unknown Verified 12/24/21 20:51 clonazepam [From Klonopin] Allergy Unknown Verified 12/24/21 20:51 fluticasone [From Flonase] Allergy Unknown Verified 12/24/21 20:51 monosodium glutamate [MSG] Allergy Unknown Verified 12/24/21 20:51 nut - unspecified Allergy Unknown Verified 12/24/21 20:51 Penicillins Allergy Unknown Verified 12/24/21 20:51 phenobarbital Allergy Unknown Verified 12/24/21 20:51 Seasonal Allergies Allergy Unknown Verified 12/24/21 20:51 strawberry Allergy Unknown Verified 12/24/21 20:51 Sulfa (Sulfonamide Allergy Unknown Verified 12/24/21 20:51 Antibiotics) sulfamethoxazole Allergy Unknown Verified 12/24/21 20:51 [From Bactrim] trimethoprim [From Bactrim] Allergy Unknown Verified 12/24/21 20:51 Active Medications: Current Medications Acetaminophen (Acetaminophen 325 Mg Tablet) 650 mg PO Q6H PRN PRN Reason: Pain, Mild (Pain Scale 1-3) Benztropine Mesylate (Benztropine Mesylate 0.5 Mg Tablet) 0.5 mg PO DAILY [facility] Last Admin: 01/02/22 08:07 Dose: 0.5 mg Documented by: Calcium Carbonate (Calcium Carbonate 500 Mg Tablet) 500 mg PO BID [facility] Last Admin: 01/02/22 08:07 Dose: 500 mg Documented by: Carbamazepine (Carbamazepine 200 Mg Tablet) 200 mg PO DAILY@1400 [place] Carbamazepine (Carbamazepine 200 Mg Tablet) 300 mg PO DAILY [facility] Last Admin: 01/02/22 08:07 Dose: 300 mg Documented by: Carbamazepine (Carbamazepine 200 Mg Tablet) 500 mg PO BEDTIME [facility] Last Admin: 01/02/22 01:07 Dose: 500 mg Documented by: Cholestyramine Resin (Cholestyramine (With Sugar) 4 Gm Powd.Pack) 4 gm PO DAILY [facility] Last Admin: 01/02/22 08:07 Dose: 4 gm Documented by: Divalproex Sodium (Divalproex Sodium 500 Mg Tablet.) 2,000 mg PO TID [facility] Last Admin: 01/02/22 08:33 Dose: 2,000 mg Documented by: Docusate Sodium (Docusate Sodium 100 Mg Capsule) 100 mg PO DAILY PRN PRN Reason: Constipation Enoxaparin Sodium (Enoxaparin Sodium 40 Mg/0.4 Ml Syringe) 40 mg SUBCUT Q24H [facility] Last Admin: 01/02/22 00:23 Dose: 40 mg Documented by: Escitalopram Oxalate (Escitalopram Oxalate 5 Mg Tablet) 5 mg PO DAILY [facility] Last Admin: 01/02/22 08:07 Dose: 5 mg Documented by: Lacosamide (Lacosamide 100 Mg Tablet) 100 mg PO BEDTIME [facility] Lorazepam (Lorazepam 0.5 Mg Tablet) 0.5 mg PO DAILY@1400 [facility] Lorazepam (Lorazepam 1 Mg Tablet) 1 mg PO DAILY [facility] Last Admin: 01/02/22 08:07 Dose: 1 mg Documented by: Lorazepam (Lorazepam 0.5 Mg Tablet) 1.5 mg PO BEDTIME [facility] Last Admin: 01/02/22 00:22 Dose: 1.5 mg Documented by: Olanzapine (Olanzapine 2.5 Mg Tablet) 2.5 mg PO BEDTIME [facility] Last Admin: 01/02/22 00:21 Dose: 2.5 mg Documented by: Omeprazole (Omeprazole 20 Mg Capsule.) 20 mg PO DAILY [facility] Last Admin: 01/02/22 08:07 Dose: 20 mg Documented by: Ondansetron HCl (Ondansetron Hcl 4 Mg/2 Ml Vial) 4 mg IVPUSH Q8H PRN PRN Reason: Nausea and Vomiting Sodium Chloride (0.9 % Sodium Chloride Flush 3 Ml Syringe) 3 ml IVFLUSH QSHIFT [facility] Last Admin: 01/02/22 08:07 Dose: 3 ml Documented by: Vitamin D (Cholecalciferol (Vitamin D3) 25 Mcg Tablet) 50 mcg PO DAILY [facility] Last Admin: 01/02/22 08:07 Dose: 50 mcg Documented by: Home Medications Medication Instructions Recorded Confirmed Last Taken Type benztropine 0.5 mg tablet 1 tab PO DAILY 01/01/22 01/01/22 Unknown History calcium carbonate 200 mg calcium 500 mg PO BID 01/01/22 01/01/22 Unknown History (500 mg) chewable tablet (Calcium Antacid) carbamazepine 200 mg tablet 200 mg PO DAILY@1400 01/01/22 01/01/22 Unknown History (Tegretol) carbamazepine 200 mg tablet 300 mg PO DAILY 01/01/22 01/02/22 Unknown History (Tegretol) carbamazepine 200 mg tablet 500 mg PO BEDTIME 01/01/22 01/01/22 Unknown History (Tegretol) cholecalciferol (vitamin D3) 50 1 cap PO DAILY 01/01/22 01/01/22 Unknown History mcg (2,000 unit) capsule cholestyramine-aspartame 4 gram 3 ea PO DAILY 01/01/22 01/01/22 Unknown History oral powder (Cholestyramine Light) divalproex 250 mg tablet,delayed 2,000 mg PO TID 01/01/22 01/01/22 Unknown History release escitalopram oxalate 5 mg tablet 1 tab PO DAILY 01/01/22 01/01/22 Unknown History lacosamide 100 mg tablet (Vimpat) 100 mg PO BEDTIME 01/01/22 01/01/22 Unknown History lorazepam 1 mg tablet 0.5 mg PO DAILY@1400 01/01/22 01/01/22 Unknown History lorazepam 1 mg tablet 1 tab PO DAILY 01/01/22 01/02/22 Unknown History lorazepam 1 mg tablet 1.5 mg PO BEDTIME 01/01/22 01/01/22 Unknown History olanzapine 2.5 mg tablet 1 tab PO BEDTIME 01/01/22 01/01/22 Unknown History omeprazole 20 mg capsule,delayed 1 cap PO DAILY 01/01/22 01/01/22 Unknown History release acetaminophen 325 mg tablet 325 mg PO Q6H PRN 01/02/22 01/02/22 Unknown History (Tylenol) cetirizine 10 mg tablet (Zyrtec) 10 mg PO DAILY PRN 01/02/22 01/02/22 Unknown History dextromethorphan-guaifenesin 10 5 ml PO Q4H PRN 01/02/22 01/02/22 Unknown History mg-100 mg/5 mL oral syrup omega 8-trj-tfx-fish oil 1,000 mg 1 cap PO DAILY 01/02/22 01/02/22 Unknown History (120 mg-180 mg) capsule (Fish Oil) Physical Exam Vital Signs: Last Vital Signs Temp 97.8 F 01/02/22 10:18 Pulse 72 01/02/22 10:18 Resp 16 01/02/22 10:18 BP 155/79 H 01/02/22 10:18 Pulse Ox 96 01/02/22 10:18 BMI result Body Mass Index 25.0 Const General: cooperative and no acute distress Eyes General: appearance normal, both eyes and all related structures Pupils: Equal, round and reactive pupils present Resp Effort & Inspection: normal respiratory effort Auscultation: clear to auscultation bilaterally Cardio Rate: regular rate Rhythm: regular rhythm GI Palpation (GI): Soft to palpation Auscultation: normal bowel sounds Skin General skin exam: no rashes or lesions noted Neuro Cranial nerves: Yes Equal, round and reactive pupils present Extrem General: Yes normal to inspection and Yes no pedal edema Results Lab Results Result Diagrams: 01/01/22 20:18 01/03/22 08:39 Lab results: Chemistry 01/01/22 01/02/22 01/02/22 20:18 07:08 07:08 Sodium 125 L 132 L 132 L Potassium 4.4 4.3 4.3 Carbon Dioxide 27 28 28 BUN 11 8 L 8 L Creatinine 0.59 0.58 0.58 Calcium 8.5 9.3 D 9.5 01/02/22 01/02/22 10:06 10:06 Sodium 132 L 131 L Potassium 4.7 Carbon Dioxide 30 H BUN 7 L Creatinine 0.58 Calcium 9.9 Hematology 01/01/22 20:18 WBC 6.7 Hgb 11.3 L Plt Count 166 Urinalysis 01/01/22 21:59 Urine Color YELLOW Urine Appearance CLEAR Urine pH 7.0 Ur Specific [place] 1.010 Urine Protein NEG Urine Glucose (UA) NEG Urine Ketones NEG Urine Blood NEG Urine Nitrite NEG Ur Leukocyte Esterase NEG Urine Studies 01/01/22 21:59 Urine Osmolality 285 L Assessment and Plan (1) Acute hyponatremia: Status: Acute Plan 46-year-old female with h/o seizure disorder as well as cerebral palsy presents to the hospital with weakness found to have hyponatremia Acute hyponatremia/ Hypoosmolar secondary to increased water intake patient and staff report the patient has been drinking >10 cups of water/juice daily will place on PO restriction to 1200 BMP q4H , adjust plan accordingly check urine Osm/Cr/Na Goal of correction not more than 8 to 10 mmol per 24 hrs Check Na every 4 hours Seizure disorder continue home meds Cerebral plasy continue home meds DVT ppx: Lovenox Procedures Date of Service Date of Service: 01/02/22
--- NOTE | 2022-01-02 12:05 | PC.NURSE ---
patient presents to overflow at this time, no apparent distress. patient noted to be unsteady on feet utilizing bathroom. patient placed on fall precautions at this time. denies any needs, family at bedside
[2022-01-02] MEDS: LORazepam 0.5 MG TABLET PO (14:06)
[2022-01-02] MEDS: carBAMazepine 200 MG TABLET PO (14:06)
[2022-01-02 15:08] LABS: Anion Gap 12 (12-20); Blood Urea Nitrogen 8 mg/dL (9-16); Calcium 9.7 mg/dL (8.4-10.2); Carbon Dioxide 29 mmol/L (22-29); Chloride 96 mmol/L (96-108); Creatinine Clr Calc Pharmacy 100.9; Estimated Glomerular Filt Rate > 60; Glucose Random 112 mg/dL (60-115); Sodium 133 mmol/L (135-145)
--- NOTE | 2022-01-02 15:33 | MHC.CM.PN ---
Addendum entered by Martina Osborn 01/03/22 14:03: MET WITH COLLIN BROADCAST ENGINEER SHE INFORMED ME THAT DR RAYSHAWN COLEMAN IS NOT THE PATIENTS PRIMARY CARE PHYSICIAN DAISHA HASSAN FROM [facility] REPORTED TO CASE MANAGEMENT BASIN TENDER TO UPDATE Addendum entered by Martina Osborn 01/03/22 12:18: DISCHARGE INSTRUCTIONS AND D/C SUMMARY FAXED TO [facility] [employer] AND [facility] NURSE PATEL EMERSON CALLED TO PATIENT GUARDIAN FATHER SARA TO INFORM HIM OF HER DISCHARGE AND ROUT OF TRANSPORTATION BY [facility] STAFF Original Note: CM CALLED PTS PRIMARY CONTACT, COLLIN ([phone]), PER HER REPORT: PT LIVES WITH A ROOMMATE AND HAS A [facility] STAFF MEMBER AT THE HOME 02/04 PT IS MOSTLY INDEPENDENT HOWEVER STAFF IS THERE TO ASSIST WITH COOKING AND CLEANING IF NEEDED PT ALSO ATTENDS A DAY PROGRAM DURING THE WEEK PT HAS A GUARDIAN, HER FATHER, SARA WESTBROOK ([phone]), HER SISTER IS SECOND GUARDIAN. PCP: RAYSHAWN COLEMAN PT DID RECEIVE THE COVID-19 VACCINES (PFIZER 10/15/20&11/12/20 AND A BOOSTER THIS YEAR) CM CALLED PTS GUARDIAN, SARA, TO REVIEW IMM. COPY PLACED IN CHART, ORIGINAL WILL BE MAILED TO HIM AT THE ADDRESS PROVIDED: [address] [place] [address] CURRENT DC PLAN IS RETURN TO HER APARTMENT WITH [facility] OPERATOR COLLIN WOULD BE THE BEST CONTACT ONCE DC TIME IS KNOWN, SHE WILL ARRANGE TRANSPORT AND IS THE PERSON DC INSTRUCTIONS SHOULD BE REVIEWED WITH.
[2022-01-02 19:21] LABS: Anion Gap 11 (12-20); Blood Urea Nitrogen 10 mg/dL (9-16); Calcium 9.8 mg/dL (8.4-10.2); Carbon Dioxide 29 mmol/L (22-29); Chloride 97 mmol/L (96-108); Creatinine Clr Calc Pharmacy 102.5; Estimated Glomerular Filt Rate > 60; Glucose Random 92 mg/dL (60-115); Potassium 4.4 mmol/L (3.3-5.1); Sodium 133 mmol/L (135-145)
[2022-01-02] MEDS: Lacosamide 100 MG TABLET PO (22:03)
[2022-01-02 23:41] LABS: Anion Gap 12 (12-20); Blood Urea Nitrogen 12 mg/dL (9-16); Calcium 9.4 mg/dL (8.4-10.2); Carbon Dioxide 29 mmol/L (22-29); Chloride 96 mmol/L (96-108); Creatinine Clr Calc Pharmacy 97.8; Estimated Glomerular Filt Rate > 60; Glucose Random 110 mg/dL (60-115); Potassium 4.2 mmol/L (3.3-5.1); Sodium 133 mmol/L (135-145)
[2022-01-03 03:13] VITALS: BP 138/84; PULSE 80; RESP 16; TEMP 36.6; O2SAT 94
[2022-01-03] MEDS: Acetaminophen 325 MG TABLET 650 MG PO (04:03)
[2022-01-03 07:13] VITALS: BP 128/79; PULSE 81; RESP 18; TEMP 36.6; O2SAT 96
[2022-01-03] MEDS: Omeprazole 20 MG CAPSULE.DR PO (07:43)
[2022-01-03] MEDS: Benztropine Mesylate 0.5 MG TABLET PO (07:44)
[2022-01-03] MEDS: Cholecalciferol (Vitamin D3) 25 MCG TABLET 50 MCG PO (07:44)
[2022-01-03] MEDS: carBAMazepine 200 MG TABLET 300 MG PO (07:44)
[2022-01-03] MEDS: 0.9 % Sodium Chloride Flush 3 ML SYRINGE IVFLUSH (07:45)
[2022-01-03] MEDS: Escitalopram Oxalate 5 MG TABLET PO (07:45)
[2022-01-03] MEDS: LORazepam 1 MG TABLET PO (07:45)
[2022-01-03] MEDS: Divalproex Sodium 500 MG TABLET.DR 2000 MG PO (07:45)
[2022-01-03] MEDS: Cholestyramine (With Sugar) 4 GM POWD.PACK PO (07:46)
[2022-01-03 09:18] LABS: Sodium 133 mmol/L (135-145)
--- NOTE | 2022-01-03 10:25 | PM.PNNEP ---
Subjective Subjective Date of Service: 01/06/22 Interval history: Events noted Physical Exam Vital Signs: Vital Signs: Last Vital Signs Temp 98 F 01/03/22 07:13 Pulse 81 01/03/22 07:13 Resp 18 01/03/22 07:13 BP 128/79 01/03/22 07:13 Pulse Ox 96 01/03/22 07:13 BMI result Body Mass Index 25.0 Const: General: cooperative and no acute distress Eyes: General: appearance normal, both eyes and all related structures Pupils: Equal, round and reactive pupils present Resp: Effort & Inspection: normal respiratory effort Auscultation: clear to auscultation bilaterally Cardio: Rate: regular rate Rhythm: regular rhythm GI: Palpation (GI): Soft to palpation Auscultation: normal bowel sounds Skin: General skin exam: no rashes or lesions noted Neuro: Cranial nerves: Yes Equal, round and reactive pupils present Extrem: General: Yes normal to inspection and Yes no pedal edema Objective Data Labs CBC & Chem 7: 01/01/22 20:18 01/03/22 08:39 Labs: Laboratory Results - last 24 hr 01/02/22 01/02/22 01/02/22 10:06 10:06 14:39 Sodium 132 L 131 L 133 L Potassium 4.7 4.0 Chloride 95 L 96 Carbon Dioxide 30 H 29 Anion Gap 12 12 BUN 7 L 8 L Creatinine 0.58 0.64 Estim Creat Clear Calc 111.4 100.9 Estimated GFR > 60 > 60 Random Glucose 94 112 Calcium 9.9 9.7 01/02/22 01/02/22 01/03/22 18:56 23:09 08:39 Sodium 133 L 133 L 133 L Potassium 4.4 4.2 Chloride 97 96 Carbon Dioxide 29 29 Anion Gap 11 L 12 BUN 10 12 Creatinine 0.63 0.66 Estim Creat Clear Calc 102.5 97.8 Estimated GFR > 60 > 60 Random Glucose 92 110 Calcium 9.8 9.4 Procedures Date of Service Date of Service: 01/03/22 Assessment & Plan Assessment and plan (1) Acute hyponatremia: Status: Acute Plan 46-year-old female with past medical history of seizure disorder as well as cerebral palsy presents to the hospital with weakness found to have hyponatremia acute hyponatremia likely secondary to increased water intake patient and staff report the patient has been drinking >10 cups of water/juice daily PO water restriction to 1200 Seizure disorder continue home meds Cerebral plasy continue home meds Time Spent With Patient Time: Total time spent is greater than 50% in coordination of care (as documented) at patient's floor/unit and/or counseling patient: Progress Note: Quality Stroke Does the patient have a stroke diagnosis?: No
[2022-01-03 11:02] VITALS: BP 124/69; PULSE 80; RESP 18; TEMP 36.4; O2SAT 96
--- NOTE | 2022-01-03 11:22 | P.DS_ITS ---
DS: Providers Provider Date of Service: 01/03/22 Date of admission: 01/01/22 23:01 Date of discharge: 01/03/22 Primary care physician: Jayden Vergara MD Consults: 01/01/22 23:06 Consult to Nephrology Routine Consulting Provider: [facility] Reason for consultation: hyponatremia Has provider been notified: No DS: Diagnosis Discharge Diagnosis (1) Acute hyponatremia: Status: Acute DS: Summary Hospital Course Hospital Course: from admission H+P by hospitalist Elizabeth Colorado MD, 01/01/22: 46-year-old female with history of cerebral palsy, history of seizures presents to the hospital with complaints of some dizziness and weakness.? According to her staff at bedside, they were playing in the park, patient was goofing around, dancing when she tore old and fell.? They went home, and on the way home patient complained of feeling weak and her legs gave out and buckled and therefore patient was brought into the hospital.? Patient currently is alert, o riented to self and place, she has no acute complaints including no headache, no change in vision, no chest pain palpitations, no dizziness, no abdominal pain nausea or vomiting, no diarrhea constipation, no urinary symptoms and no lower extremity edema. On arrival to the ED patient hemodynamically stable with no significant abnormal vitals Labs are significant for hemoglobin of 11.3, hematocrit 31.5, sodium of 125, potassium 4.4, serum osmolality of 262, and urine osmolality pending.? Urine random sodium of 72.? When I asked more extensive history on oral intake, patient and her staff at bedside reports that she drinks more than 8 0.5 L bottles of water daily as well as 2 large bottles of juice. Patient will be admitted for further management of her hyponatremia The patient was admitted to the medical/surgical floor. Nephrology was consulted. Sodium improved to 133 with fluid restriction to 1200 mL/d. She was discharged back to her senior living with fluid restriction to 1500 mL/d and instructions to repeat BMP and follow up with her primary care doctor in 1 week. Time Spent with Patient Time attestation: Total time spent providing and/or coordinating discharge services: Discharge coordination time: Greater than 30 minutes Quality: Safe Use of Opioids Does Pt have an Active Cancer Diagnosis on the Problem List?: No Quality: Stroke Does the patient have a stroke diagnosis?: No Physical Exam Vital Signs: Vital Signs: Last Vital Signs Temp 97.6 F 01/03/22 11:02 Pulse 80 01/03/22 11:02 Resp 18 01/03/22 11:02 BP 124/69 01/03/22 11:02 Pulse Ox 96 01/03/22 11:02 BMI result Body Mass Index 25.0 Gen: in no acute distress HEENT: sclera anicteric, moist mucus membranes Neck: supple Lungs: clear to auscultation bilaterally Heart: regular rate and rhythm, no murmurs Abd: soft, non-tender, non-distended Ext: no edema Skin: warm/well-perfused Neuro: alert, no motor deficit Psych: impaired insight DS: Data Data Completed and Pending Completed studies during hospitalization [Text1]: Laboratory Results WBC 6.7 X10*3/uL (4.8-10.8) 01/01/22 20:18 RBC 3.43 X10*6/uL (4.20-5.50) L 01/01/22 20:18 Hgb 11.3 g/dl (12.0-16.0) L 01/01/22 20:18 Hct 31.5 % (37.0-47.0) L 01/01/22 20:18 MCV 91.8 fL (80.0-98.0) 01/01/22 20:18 MCH 32.9 pg (27.0-33.0) 01/01/22 20:18 MCHC 35.9 g/dl (31.0-35.0) H 01/01/22 20:18 RDW 12.4 % (11.0-16.0) 01/01/22 20:18 Plt Count 166 X10*3/uL (160-400) 01/01/22 20:18 MPV 10.4 fL (9.4-12.3) 01/01/22 20:18 Immature Gran % (Auto) 0.3 % (0.0-0.4) 01/01/22 20:18 Neut % (Auto) 22.7 % (45-73) L 01/01/22 20:18 Lymph % (Auto) 68.1 % (20-40) H 01/01/22 20:18 [place] % (Auto) 7.9 % (2-11) 01/01/22 20:18 Eos % (Auto) 0.6 % (0-4) 01/01/22 20:18 Baso % (Auto) 0.4 % (0-2) 01/01/22 20:18 Lymph # (Auto) 4.6 X10*3/uL (1.2-4.9) 01/01/22 20:18 [place] # (Auto) 0.5 X10*3/uL (0.1-1.2) 01/01/22 20:18 Eos # (Auto) 0.0 X10*3/uL (0.0-0.4) 01/01/22 20:18 Baso # (Auto) 0.0 X10*3/uL (0.0-0.2) 01/01/22 20:18 Abs Immat Gran (auto) 0.02 X10*3/uL (0.00-0.03) 01/01/22 20:18 Absolute Neuts (auto) 1.5 x10*3/uL (2.0-8.3) L 01/01/22 20:18 Absolute Nucleated RBC 0.000 X10*3/uL (0.0-0.012) 01/01/22 20:18 Nucleated RBC % (auto) 0.0 /100WBC (0.0-0.2) 01/01/22 20:18 Smear Tech's Comments VERIFIED 01/01/22 20:18 Sodium 133 mmol/L (135-145) L 01/03/22 08:39 Potassium 4.2 mmol/L (3.3-5.1) 01/02/22 23:09 Chloride 96 mmol/L (96-108) 01/02/22 23:09 Carbon Dioxide 29 mmol/L (22-29) 01/02/22 23:09 Anion Gap 12 (12-20) 01/02/22 23:09 BUN 12 mg/dL (9-16) 01/02/22 23:09 Creatinine 0.66 mg/dL (0.5-1.4) 01/02/22 23:09 Estim Creat Clear Calc 97.8 01/02/22 23:09 Estimated GFR > 60 01/02/22 23:09 Random Glucose 110 mg/dL (60-115) 01/02/22 23:09 Osmolality 262 mosm/kg (281-305) L 01/01/22 20:18 Calcium 9.4 mg/dL (8.4-10.2) 01/02/22 23:09 Total Bilirubin 0.2 mg/dL (0.0-1.0) 01/01/22 20:18 AST 8 U/L (5-31) 01/01/22 20:18 ALT 9 U/L (0-31) 01/01/22 20:18 Alkaline Phosphatase 50 U/L (39-117) 01/01/22 20:18 Total Protein 5.9 g/dL (6.5-8.0) L 01/01/22 20:18 Albumin 3.7 g/dL (3.5-5.0) 01/01/22 20:18 Urine Color YELLOW 01/01/22 21:59 Urine Appearance CLEAR 01/01/22 21:59 Urine pH 7.0 (5.0-8.0) 01/01/22 21:59 Ur Specific [place] 1.010 (1.005-1.025) 01/01/22 21:59 Urine Protein NEG MG/DL (NEG-TRACE) 01/01/22 21:59 Urine Glucose (UA) NEG MG/DL (NEG) 01/01/22 21:59 Urine Ketones NEG MG/DL (NEG) 01/01/22 21:59 Urine Blood NEG (NEG) 01/01/22 21:59 Urine Nitrite NEG (NEG) 01/01/22 21:59 Ur Leukocyte Esterase NEG (NEG) 01/01/22 21:59 Urine Osmolality 285 mosm/kg (373-1093) L 01/01/22 21:59 Ur Random Sodium 72.0 mmol/L 01/01/22 21:59 Valproic Acid 97.1 mcg/mL (50.0-100.0) 01/01/22 20:18 Carbamazepine 7.2 mcg/mL (5.0-12.0) 01/01/22 20:18 COVID-19 (JAMESON) Negative (Negative) 01/01/22 22:33 COVID-19 Clin Com See Note 01/01/22 22:33 Discharge Plan Discharge Patient Disposition: Xfer Other Discharge Diagnosis: hyponatremia Referrals: Jayden Vergara MD [Primary Care Provider] - 1 Week Discharge Medications: Continued benztropine 0.5 mg tablet 1 tab PO DAILY 0RF divalproex 250 mg tablet,delayed release (DR/EC) 2,000 mg PO TID 0RF olanzapine 2.5 mg tablet 1 tab PO BEDTIME 0RF carbamazepine [Tegretol] 200 mg tablet 300 mg PO DAILY 0RF carbamazepine [Tegretol] 200 mg tablet 200 mg PO DAILY@1400 0RF carbamazepine [Tegretol] 200 mg tablet 500 mg PO BEDTIME 0RF calcium carbonate [Calcium Antacid] 200 mg calcium (500 mg) tablet,chewable 500 mg PO BID 0RF omeprazole 20 mg capsule,delayed release(DR/EC) 1 cap PO DAILY 0RF lorazepam 1 mg tablet 1 tab PO DAILY 0RF lorazepam 1 mg tablet 0.5 mg PO DAILY@1400 0RF escitalopram oxalate 5 mg tablet 1 tab PO DAILY 0RF Cholestyramine Light 4 gram powder 3 ea PO DAILY 0RF Rx Instructions: give 3 teaspoons daily in the AM cholecalciferol (vitamin D3) 50 mcg (2,000 unit) capsule 1 cap PO DAILY 0RF lacosamide [Vimpat] 100 mg tablet 100 mg PO BEDTIME 0RF lorazepam 1 mg tablet 1.5 mg PO BEDTIME 0RF acetaminophen [Tylenol] 325 mg Tablet 325 mg PO Q6H PRN (Reason: Pain) 0RF cetirizine [Zyrtec] 10 mg Tablet 10 mg PO DAILY PRN (Reason: Allergy Symptoms) 0RF dextromethorphan-guaifenesin 10-100 mg/5 mL Syrup 5 ml PO Q4H PRN (Reason: Cough) 0RF omega 6-enx-wqh-fish oil [Fish Oil] 1,000 mg (120 mg-180 mg) Capsule 1 cap PO DAILY 0RF Discharge Orders: Discharge Order (Routine); Ordered 01/03/22 Ordered By: Nargis Cowan Diet: other Activity on Discharge: As tolerated Stand Alone Forms: Patient Portal Discharge page Other Ambulatory Orders: Basic Metabolic Panel (Routine) Timeframe: 1 Week Facility: [facility] - Location: Laboratory Ordered By: Nargis Cowan Care Plan Goals: normal sodium Health Concerns: hyponatremia Plan of Treatment: restrict water/fluid intake to 1.5 liters daily recheck labs [BMP] in 1 week see primary care doctorin 1 week Assessment: See Discharge Summary Patient Instructions: Hyponatremia (DC)
== END 2022-01-03 14:29 | disposition other institution (70) | DRG 641 ==
LOC: HO.ED 21:55 → HO.EDOVER 23:13 → HO.S3 01-02 19:09
PROVIDERS: Nurse Practitioner Acute Care; Physician Assistant; Admitting Provider Internal Medicine; Emergency Provider Internal Medicine; PCP Internal Medicine; Visit Provider Family Medicine
DX: E87.1 Hypo-osmolality and hyponatremia (principal); G40.909 Epilepsy, unspecified, not intractable, without status epilepticus; G80.9 Cerebral palsy, unspecified; Z20.822 Contact with and (suspected) exposure to COVID-19; Z88.0 Allergy status to penicillin; Z88.2 Allergy status to sulfonamides; Z88.5 Allergy status to narcotic agent; Z79.899 Other long term (current) drug therapy
CPT/HCPCS: 36415; 80048; 80053; 80156; 80164; 81003; 83930; 83935; 84295; 84300; 85025; 87635; 93005; 99285; J1650; J2060

== ENCOUNTER 2022-01-08 16:38 | Emergency (ER) | payer MEDICARE, MEDICAID, SELFPAY ==
[2022-01-08 16:41] VITALS: BP 145/78; PULSE 96; RESP 18; TEMP 36.4; O2SAT 97; BMI 28.6
[2022-01-08 16:56] LABS: MANUAL DIFF FLAG NO
[2022-01-08 16:58] LABS: Basophils Percent Auto 0.3 % (0-2); Eosinophils Percent Auto 0.5 % (0-4); Hematocrit 33.4 % (37.0-47.0); Hemoglobin 11.7 g/dl (12.0-16.0); Imm Gran Abs Auto 0.06 X10*3/uL (0.00-0.03); Lymphocytes Absolute Auto 2.8 X10*3/uL (1.2-4.9); Lymphocytes Percent Auto 47.5 % (20-40); Mean Corpuscular Hemoglobin 33.1 pg (27.0-33.0); Mean Corpuscular Volume 94.4 fL (80.0-98.0); Mean Platelet Volume 10.5 fL (9.4-12.3); Monocytes Absolute Auto 0.4 X10*3/uL (0.1-1.2); Monocytes Percent Auto 7.4 % (2-11); Neutrophils Absolute Auto 2.6 x10*3/uL (2.0-8.3); Neutrophils Percent Auto 43.3 % (45-73); Platelet Count 198 X10*3/uL (160-400); Red Blood Count 3.54 X10*6/uL (4.20-5.50); Red Cell Distribution Width 12.6 % (11.0-16.0); White Blood Count 5.9 X10*3/uL (4.8-10.8)
[2022-01-08 17:14] LABS: Anion Gap 16 (12-20); Blood Urea Nitrogen 10 mg/dL (9-16); Carbon Dioxide 22 mmol/L (22-29); Chloride 104 mmol/L (96-108); Creatinine Clr Calc Pharmacy 99.3; Estimated Glomerular Filt Rate > 60; Glucose Random 166 mg/dL (60-115); Potassium 4.4 mmol/L (3.3-5.1); Sodium 138 mmol/L (135-145)
[2022-01-08 21:05] LABS: Troponin-I High Sensitivity < 3.5 ng/L (<3.5-17.0)
--- NOTE | 2022-01-09 03:56 | ED_ITS ---
HPI - Dizziness General Chief Complaint: Dizziness Stated Complaint: Dizziness Time Seen by Provider: 01/09/22 03:27 Source: patient and other Mode of arrival: ambulatory History of Present Illness HPI Narrative: This is a 46-year-old female with cognitive delays, seizure history ,and is brought in by [facility] provide for evaluation of recurring episodes of dizziness that patient states occurs only when she is walk and says that the r oom spins. She denies any ringing in her ears and states that sometimes she falls. Related Data Home Medications Medication Instructions Recorded Confirmed benztropine 0.5 mg tablet 1 tab PO DAILY 01/01/22 01/01/22 calcium carbonate 200 mg calcium 500 mg PO BID 01/01/22 01/01/22 (500 mg) chewable tablet (Calcium Antacid) carbamazepine 200 mg tablet 200 mg PO DAILY@1400 01/01/22 01/01/22 (Tegretol) carbamazepine 200 mg tablet 300 mg PO DAILY 01/01/22 01/02/22 (Tegretol) carbamazepine 200 mg tablet 500 mg PO BEDTIME 01/01/22 01/01/22 (Tegretol) cholecalciferol (vitamin D3) 50 1 cap PO DAILY 01/01/22 01/01/22 mcg (2,000 unit) capsule cholestyramine-aspartame 4 gram 3 ea PO DAILY 01/01/22 01/01/22 oral powder (Cholestyramine Light) divalproex 250 mg tablet,delayed 2,000 mg PO TID 01/01/22 01/01/22 release escitalopram oxalate 5 mg tablet 1 tab PO DAILY 01/01/22 01/01/22 lacosamide 100 mg tablet (Vimpat) 100 mg PO BEDTIME 01/01/22 01/01/22 lorazepam 1 mg tablet 0.5 mg PO DAILY@1400 01/01/22 01/01/22 lorazepam 1 mg tablet 1 tab PO DAILY 01/01/22 01/02/22 lorazepam 1 mg tablet 1.5 mg PO BEDTIME 01/01/22 01/01/22 olanzapine 2.5 mg tablet 1 tab PO BEDTIME 01/01/22 01/01/22 omeprazole 20 mg capsule,delayed 1 cap PO DAILY 01/01/22 01/01/22 release acetaminophen 325 mg tablet 325 mg PO Q6H PRN 01/02/22 01/02/22 (Tylenol) cetirizine 10 mg tablet (Zyrtec) 10 mg PO DAILY PRN 01/02/22 01/02/22 dextromethorphan-guaifenesin 10 5 ml PO Q4H PRN 01/02/22 01/02/22 mg-100 mg/5 mL oral syrup omega 2-cny-cme-fish oil 1,000 mg 1 cap PO DAILY 01/02/22 01/02/22 (120 mg-180 mg) capsule (Fish Oil) Previous Rx's Medication Instructions Recorded cefdinir 300 mg capsule 300 mg PO Q12H 5 Days #10 cap 01/09/22 Allergies Allergy/AdvReac Type Severity Reaction Status Date / Time amitriptyline Allergy Unknown Verified 12/24/21 20:51 amoxicillin Allergy Unknown Verified 12/24/21 20:51 budesonide Allergy Unknown Verified 12/24/21 20:51 [From Rhinocort Allergy] cheese Allergy Unknown Verified 12/24/21 20:51 Chocolate Allergy Unknown Verified 12/24/21 20:51 cigarette smoke Allergy Unknown Verified 12/24/21 20:51 ciprofloxacin [From Cipro] Allergy Unknown Verified 12/24/21 20:51 clarithromycin [From Biaxin] Allergy Unknown Verified 12/24/21 20:51 clonazepam [From Klonopin] Allergy Unknown Verified 12/24/21 20:51 fluticasone [From Flonase] Allergy Unknown Verified 12/24/21 20:51 monosodium glutamate [MSG] Allergy Unknown Verified 12/24/21 20:51 nut - unspecified Allergy Unknown Verified 12/24/21 20:51 Penicillins Allergy Unknown Verified 12/24/21 20:51 phenobarbital Allergy Unknown Verified 12/24/21 20:51 Seasonal Allergies Allergy Unknown Verified 12/24/21 20:51 strawberry Allergy Unknown Verified 12/24/21 20:51 Sulfa (Sulfonamide Allergy Unknown Verified 12/24/21 20:51 Antibiotics) sulfamethoxazole Allergy Unknown Verified 12/24/21 20:51 [From Bactrim] trimethoprim [From Bactrim] Allergy Unknown Verified 12/24/21 20:51 Review of Systems Review of Systems: Pertinent positives and negatives as stated in HPI and 10 point review of systems is otherwise negative. [facility] Past Medical History Source: nursing notes reviewed Medical History Cerebral palsy Seizure disorder Surgical History History of hysterectomy Family History Family History Other No family history of coronary artery disease Social History Social History Household Members: Other Housing: Other Housing Other:: Lives in a [facility] Alcohol intake: never Patient Tobacco Use Status: Never used Tobacco Advance Directives: No Patient : No service: No Current occupational status: disabled Physical Exam Vital Signs: Vital Signs: Last Vital Signs Temp 97.5 F 01/08/22 16:41 Pulse 79 01/09/22 04:25 Resp 18 01/08/22 16:41 BP 138/80 01/09/22 04:25 Pulse Ox 97 01/08/22 16:41 BMI result Body Mass Index 28.6 VITAL SIGNS: Reviewed. GENERAL: Well developed, well nourished, in no acute distress. HEAD: Normocephalic/atraumatic EYES: PERRLA, EOMI intact without pain, no nystagmus EARS: Ext canals without abnormality OROPHARYNX: no oral lesions noted, posterior pharynx clear LUNGS: Normal breath sounds. No adventitious sounds or accessory muscle use. SpO2<97> CARDIOVASCULAR: Regular rate and rhythm without noted murmurs ABDOMEN: Soft, non-tender, non-distended with bowel sounds. MUSCULOSKELETAL: No tenderness, deformities, or effusions noted on gross inspection. EXTREMITIES: No cyanosis, clubbing or edema. SKIN: Inspection of the skin reveals no rashes NEUROLOGIC: Alert and oriented x 4. Strength and sensation to light touch were grossly intact x 4, no facial asymmetry, no truncal ataxia, cranial nerves 2-12 grossly intact Course Course Course Narrative: 46-year-old female with history and clinical presentation suggestive possible fluid balance contribution, will rule out infections/anemia and patient on review of prior documentation was seen here for similar symptoms 01/01 and admitted for acute hyponatremia that on review of all investigations today is no longer present. Review of all investigations demonstrates a UTI and negative orthostatics. Patient will be treated for her UTI and has multiple medication allergies but will go home with a prescription for cefdinir. [facility] - Dizziness Lab Data Result diagrams: 01/08/22 16:50 01/08/22 16:50 Labs: Lab Results 01/08/22 01/08/22 01/08/22 Range/Units 16:50 16:50 16:50 WBC 5.9 (4.8-10.8) X10*3/uL RBC 3.54 L (4.20-5.50) X10*6/uL Hgb 11.7 L (12.0-16.0) g/dl Hct 33.4 L (37.0-47.0) % MCV 94.4 (80.0-98.0) fL MCH 33.1 H (27.0-33.0) pg MCHC 35.0 (31.0-35.0) g/dl RDW 12.6 (11.0-16.0) % Plt Count 198 (160-400) X10*3/uL MPV 10.5 (9.4-12.3) fL Immature Gran % (Auto) 1.0 H (0.0-0.4) % Neut % (Auto) 43.3 L (45-73) % Lymph % (Auto) 47.5 H (20-40) % Ferry % (Auto) 7.4 (2-11) % Eos % (Auto) 0.5 (0-4) % Baso % (Auto) 0.3 (0-2) % Lymph # (Auto) 2.8 (1.2-4.9) X10*3/uL Ferry # (Auto) 0.4 (0.1-1.2) X10*3/uL Eos # (Auto) 0.0 (0.0-0.4) X10*3/uL Baso # (Auto) 0.0 (0.0-0.2) X10*3/uL Abs Immat Gran (auto) 0.06 H (0.00-0.03) X10*3/uL Absolute Neuts (auto) 2.6 (2.0-8.3) x10*3/uL Absolute Nucleated RBC 0.000 (0.0-0.012) X10*3/uL Nucleated RBC % (auto) 0.0 (0.0-0.2) /100WBC Sodium 138 (135-145) mmol/L Potassium 4.4 (3.3-5.1) mmol/L Chloride 104 (96-108) mmol/L Carbon Dioxide 22 (22-29) mmol/L Anion Gap 16 (12-20) BUN 10 (9-16) mg/dL Creatinine 0.72 (0.5-1.4) mg/dL Estim Creat Clear Calc 99.3 Estimated GFR > 60 Random Glucose 166 H (60-115) mg/dL Calcium 9.0 (8.4-10.2) mg/dL Troponin I High Sens < 3.5 (<3.5-17.0) ng/L Urine Color Urine Appearance Urine pH (5.0-8.0) Ur Specific Happy (1.005-1.025) Urine Protein (NEG-TRACE) MG/DL Urine Glucose (UA) (NEG) MG/DL Urine Ketones (NEG) MG/DL Urine Blood (NEG) Urine Nitrite (NEG) Ur Leukocyte Esterase (NEG) Urine RBC (0) /HPF Urine WBC (0-4) /HPF Urine WBC Clumps Ur Squamous Epith Cells /LPF Urine Bacteria /LPF Urine Test (NEGATIVE) 01/09/22 01/09/22 Range/Units 04:30 04:30 WBC (4.8-10.8) X10*3/uL RBC (4.20-5.50) X10*6/uL Hgb (12.0-16.0) g/dl Hct (37.0-47.0) % MCV (80.0-98.0) fL MCH (27.0-33.0) pg MCHC (31.0-35.0) g/dl RDW (11.0-16.0) % Plt Count (160-400) X10*3/uL MPV (9.4-12.3) fL Immature Gran % (Auto) (0.0-0.4) % Neut % (Auto) (45-73) % Lymph % (Auto) (20-40) % Ferry % (Auto) (2-11) % Eos % (Auto) (0-4) % Baso % (Auto) (0-2) % Lymph # (Auto) (1.2-4.9) X10*3/uL Ferry # (Auto) (0.1-1.2) X10*3/uL Eos # (Auto) (0.0-0.4) X10*3/uL Baso # (Auto) (0.0-0.2) X10*3/uL Abs Immat Gran (auto) (0.00-0.03) X10*3/uL Absolute Neuts (auto) (2.0-8.3) x10*3/uL Absolute Nucleated RBC (0.0-0.012) X10*3/uL Nucleated RBC % (auto) (0.0-0.2) /100WBC Sodium (135-145) mmol/L Potassium (3.3-5.1) mmol/L Chloride (96-108) mmol/L Carbon Dioxide (22-29) mmol/L Anion Gap (12-20) BUN (9-16) mg/dL Creatinine (0.5-1.4) mg/dL Estim Creat Clear Calc Estimated GFR Random Glucose (60-115) mg/dL Calcium (8.4-10.2) mg/dL Troponin I High Sens (<3.5-17.0) ng/L Urine Color YELLOW Urine Appearance CLEAR Urine pH 6.0 (5.0-8.0) Ur Specific Happy 1.015 (1.005-1.025) Urine Protein NEG (NEG-TRACE) MG/DL Urine Glucose (UA) NEG (NEG) MG/DL Urine Ketones NEG (NEG) MG/DL Urine Blood NEG (NEG) Urine Nitrite NEG (NEG) Ur Leukocyte Esterase 1+ H (NEG) Urine RBC 0 (0) /HPF Urine WBC 10-14 H (0-4) /HPF Urine WBC Clumps NOTED Ur Squamous Epith Cells TRACE /LPF Urine Bacteria 1+ /LPF Urine Test NEGATIVE (NEGATIVE) Discharge Plan Discharge Clinical Impression: Dizziness, UTI (urinary tract infection) Patient Disposition: Home, Self-Care Instructions: Urinary Tract Infection in Women (DC) Additional Instructions: 1. Resume all home medications. 2. Complete the entire course of antibiotics as ordered. 3. Follow-up with your primary care provider in the next 1-2 days for re- evaluation. Return to the ER for worsening symptoms. Prescriptions: New cefdinir 300 mg capsule 300 mg PO Q12H 5 Days Qty: 10 0RF No Action benztropine 0.5 mg tablet 1 tab PO DAILY 0RF divalproex 250 mg tablet,delayed release (DR/EC) 2,000 mg PO TID 0RF olanzapine 2.5 mg tablet 1 tab PO BEDTIME 0RF carbamazepine [Tegretol] 200 mg tablet 300 mg PO DAILY 0RF carbamazepine [Tegretol] 200 mg tablet 200 mg PO DAILY@1400 0RF carbamazepine [Tegretol] 200 mg tablet 500 mg PO BEDTIME 0RF calcium carbonate [Calcium Antacid] 200 mg calcium (500 mg) tablet,chewable 500 mg PO BID 0RF omeprazole 20 mg capsule,delayed release(DR/EC) 1 cap PO DAILY 0RF lorazepam 1 mg tablet 1 tab PO DAILY 0RF lorazepam 1 mg tablet 0.5 mg PO DAILY@1400 0RF escitalopram oxalate 5 mg tablet 1 tab PO DAILY 0RF Cholestyramine Light 4 gram powder 3 ea PO DAILY 0RF Rx Instructions: give 3 teaspoons daily in the AM cholecalciferol (vitamin D3) 50 mcg (2,000 unit) capsule 1 cap PO DAILY 0RF lacosamide [Vimpat] 100 mg tablet 100 mg PO BEDTIME 0RF lorazepam 1 mg tablet 1.5 mg PO BEDTIME 0RF acetaminophen [Tylenol] 325 mg Tablet 325 mg PO Q6H PRN (Reason: Pain) 0RF cetirizine [Zyrtec] 10 mg Tablet 10 mg PO DAILY PRN (Reason: Allergy Symptoms) 0RF dextromethorphan-guaifenesin 10-100 mg/5 mL Syrup 5 ml PO Q4H PRN (Reason: Cough) 0RF omega 9-wgk-nqv-fish oil [Fish Oil] 1,000 mg (120 mg-180 mg) Capsule 1 cap PO DAILY 0RF Referrals: Grace Estrada MD [Primary Care Provider] -
[2022-01-09 04:21] VITALS: BP 150/82; PULSE 76
[2022-01-09 04:23] VITALS: BP 154/82; PULSE 86
[2022-01-09 04:25] VITALS: BP 138/80; PULSE 79
[2022-01-09 04:38] LABS: Appearance Urine CLEAR; Color Urine YELLOW; Glucose Urine UA NEG (NEG); Leukocyte Esterase Urine 1+ (NEG); Nitrite Urine NEG (NEG); Specific Gravity - Urine 1.015 (1.005-1.025); UACC Culture Trigger YES; Urine Blood NEG (NEG); Urine Ketones NEG (NEG); Urine Protein NEG (NEG-TRACE)
[2022-01-09 04:40] LABS: UPreg QC Valid YES; Urine Pregnancy NEGATIVE (NEGATIVE)
[2022-01-09 04:45] LABS: Bacteria Urine 1+ /LPF; RBC Urine 0 /HPF (0); Squamous Epithelial Cell Urine TRACE /LPF; WBC Clumps Urine NOTED
== END 2022-01-09 06:25 | disposition home or self-care (01) ==
PROVIDERS: Emergency Provider Student in an Organized Health Care Education/Training Program; PCP Internal Medicine
DX: R42 Dizziness and giddiness (principal); N39.0 Urinary tract infection, site not specified; Z79.899 Other long term (current) drug therapy
CPT/HCPCS: 36415; 80048; 81001; 81025; 84484; 85025; 87086; 99283

== ENCOUNTER 2022-04-02 03:05 | Emergency (ER) | payer MEDICARE, MEDICAID, SELFPAY ==
--- NOTE | ~2022-04-02 | XR_ITS ---
EXAMINATION: XR WRIST, RIGHT CLINICAL INFORMATION: Fall, wrist pain with deformity COMPARISON: None TECHNIQUE: PA, lateral, and oblique views of the right wrist. FINDINGS: Osseous alignment is anatomic. Mild degenerative changes noted. No acute fracture is seen. There is soft tissue swelling about the wrist. XR/XR wrist RT 2V IMPRESSION: Soft tissue swelling. No fracture identified.
[2022-04-02 03:12] VITALS: BP 137/87; PULSE 89; RESP 18; TEMP 36.9; O2SAT 97; BMI 25.0
--- NOTE | 2022-04-02 05:18 | ED_ITS ---
HPI - Fall General Chief Complaint: Fall Stated Complaint: fall/rt wrist injury Time Seen by Provider: 04/02/22 04:45 Source: patient Mode of arrival: EMS Limitations: no limitations History of Present Illness HPI Narrative: 47-year-old female with history of developmental delay who lives in a skilled nursing who presents emergency department for evaluation of a fall injury to her right wrist. Patient told me that she was getting out of bed and then fell landing on her wrist. She is currently complaining of constant pain in her right wrist which she states is severe and is worse with movement. She denied any other injuries from the fall. The patient states that she is COVID positive and believes that she has had symptoms since 03/31/2022 (2 days prior to evaluation). MD complaint: fall Onset (ago): hour(s) (1) Fall from: out of bed Fall witnessed: no Place fall occurred: other ([facility]) Loss of consciousness: none Prolonged down time: no Symptoms prior to fall: none Location of injury - extremities: right: arm (Wrist) Severity: severe Quality: sharp Associated symptoms (after fall): denies Related Data Home Medications Medication Instructions Recorded Confirmed benztropine 0.5 mg tablet 1 tab PO DAILY 01/01/22 01/01/22 calcium carbonate 200 mg calcium 500 mg PO BID 01/01/22 01/01/22 (500 mg) chewable tablet (Calcium Antacid) carbamazepine 200 mg tablet 200 mg PO DAILY@1400 01/01/22 01/01/22 (Tegretol) carbamazepine 200 mg tablet 300 mg PO DAILY 01/01/22 01/02/22 (Tegretol) carbamazepine 200 mg tablet 500 mg PO BEDTIME 01/01/22 01/01/22 (Tegretol) cholecalciferol (vitamin D3) 50 1 cap PO DAILY 01/01/22 01/01/22 mcg (2,000 unit) capsule cholestyramine-aspartame 4 gram 3 ea PO DAILY 01/01/22 01/01/22 oral powder (Cholestyramine Light) divalproex 250 mg tablet,delayed 2,000 mg PO TID 01/01/22 01/01/22 release escitalopram oxalate 5 mg tablet 1 tab PO DAILY 01/01/22 01/01/22 lacosamide 100 mg tablet (Vimpat) 100 mg PO BEDTIME 01/01/22 01/01/22 lorazepam 1 mg tablet 0.5 mg PO DAILY@1400 01/01/22 01/01/22 lorazepam 1 mg tablet 1 tab PO DAILY 01/01/22 01/02/22 lorazepam 1 mg tablet 1.5 mg PO BEDTIME 01/01/22 01/01/22 olanzapine 2.5 mg tablet 1 tab PO BEDTIME 01/01/22 01/01/22 omeprazole 20 mg capsule,delayed 1 cap PO DAILY 01/01/22 01/01/22 release acetaminophen 325 mg tablet 325 mg PO Q6H PRN Pain 01/02/22 01/02/22 (Tylenol) cetirizine 10 mg tablet (Zyrtec) 10 mg PO DAILY PRN Allergy Symptoms 01/02/22 01/02/22 dextromethorphan-guaifenesin 10 5 ml PO Q4H PRN Cough 01/02/22 01/02/22 mg-100 mg/5 mL oral syrup omega 7-dyh-wdq-fish oil 1,000 mg 1 cap PO DAILY 01/02/22 01/02/22 (120 mg-180 mg) capsule (Fish Oil) Previous Rx's Medication Instructions Recorded cefdinir 300 mg capsule 300 mg PO Q12H 5 days #10 caps 01/09/22 Allergies Allergy/AdvReac Type Severity Reaction Status Date / Time amitriptyline Allergy Unknown Verified 12/24/21 20:51 amoxicillin Allergy Unknown Verified 12/24/21 20:51 budesonide Allergy Unknown Verified 12/24/21 20:51 [From Rhinocort Allergy] cheese Allergy Unknown Verified 12/24/21 20:51 Chocolate Allergy Unknown Verified 12/24/21 20:51 cigarette smoke Allergy Unknown Verified 12/24/21 20:51 ciprofloxacin [From Cipro] Allergy Unknown Verified 12/24/21 20:51 clarithromycin [From Biaxin] Allergy Unknown Verified 12/24/21 20:51 clonazepam [From Klonopin] Allergy Unknown Verified 12/24/21 20:51 fluticasone [From Flonase] Allergy Unknown Verified 12/24/21 20:51 monosodium glutamate [MSG] Allergy Unknown Verified 12/24/21 20:51 nut - unspecified Allergy Unknown Verified 12/24/21 20:51 Penicillins Allergy Unknown Verified 12/24/21 20:51 phenobarbital Allergy Unknown Verified 12/24/21 20:51 Seasonal Allergies Allergy Unknown Verified 12/24/21 20:51 strawberry Allergy Unknown Verified 12/24/21 20:51 Sulfa (Sulfonamide Allergy Unknown Verified 12/24/21 20:51 Antibiotics) sulfamethoxazole Allergy Unknown Verified 12/24/21 20:51 [From Bactrim] trimethoprim [From Bactrim] Allergy Unknown Verified 12/24/21 20:51 Review of Systems Review of Systems: Yes all other systems are reviewed and are negative [facility] Past Medical History Medical History Cerebral palsy Seizure disorder Surgical History History of hysterectomy Family History Family History Other No family history of coronary artery disease Social History Social History Household Members: Other Housing: Other Housing Other:: Lives in a skilled nursing Alcohol intake: never Patient Tobacco Use Status: Never used Tobacco Advance Directives: No Patient : No service: No Current occupational status: disabled Physical Exam Vital Signs: Vital Signs: Last Vital Signs Temp 98.5 F 04/02/22 03:12 Pulse 89 04/02/22 03:12 Resp 18 04/02/22 03:12 BP 137/87 04/02/22 03:12 Pulse Ox 97 04/02/22 03:12 O2 Del Method 04/02/22 03:12 BMI result Body Mass Index 25.0 Const: Other: Awake, alert, female patient, appears to be in distress secondary to her wrist injury, answers all questions appropriately HEENT: Head: Yes normal to inspection, Yes normocephalic and Yes atraumatic Ears: external ears normal General nose exam: Normal external nose present Face and sinus: Yes normal facial exam Mouth: Normal oral and palatal mucosa present Throat: Yes posterior oropharynx normal Eyes: General: appearance normal, both eyes and all related structures Pupils: Equal, round and reactive pupils present Neck: Neck: Yes normal visual inspection, Yes no lymphadenopathy, Yes trachea midline and Yes supple Chest: Chest palpation & inspection: normal inspection of the chest and normal palpation of entire chest wall Resp: Effort & Inspection: normal respiratory effort and able to speak in complete sentences Auscultation: clear to auscultation bilaterally Cardio: Rate: regular rate Rhythm: regular rhythm Heart sounds: S1 normal heart sound present, S2 normal heart sound present and no murmurs GI: Inspection: Yes normal to inspection Palpation (GI): Soft to palpation, nontender and no guarding Auscultation: normal bowel sounds : General: Yes no CVA tenderness Back/Spine/Pelvis: Back: no CVA tenderness Skin: General skin exam: no rashes or lesions noted Neuro: Cranial nerves: Yes CN's II-XII intact bilaterally and Yes Equal, round and reactive pupils present Cognition (Neuro): normal cognition Motor exam (neuro): 5/5 motor strength present throughout Extrem: Other: The patient has an obvious right wrist injury with hematoma over the to distal radius, patient is tender with palpation of this area. Her extremities neurovascularly intact. Psych: Appearance: grossly normal Speech and movement: Normal speech and movement present Affect: normal affect Attitude: cooperative Thought process: Normal thought process present Thought content: Normal thought content present Course Course Course Narrative: 47-year-old female patient who presents emergency department for evaluation of fall out of bed with right wrist injury. The patient is COVID positive x2 days. Her vital signs were normal. The patient's right wrist had obvious deformity with a hematoma. The patient was having severe pain was having difficulty getting an x-ray therefore I did do a hematoma block with 10 cc lidocaine 1%. After this the patient did have some relief of her pain and we were able to obtain x-rays. 0559: X-rays reviewed by me and interpreted by the radiologist as soft tissue swelling only with no acute fracture. The patient was placed in a wrist splint. She was advised to take Tylenol and ibuprofen for pain. The patient will be discharged back to her skilled nursing. Procedures Procedure Narrative Procedure Narrative: Right wrist hematoma block: I did discuss the procedure with the patient and she gave me informed verbal consent. The area of soft tissue swelling over the radial aspect of the right wrist was prepped with Betadine. Using an 18 gauge needle I was able to enter the hematoma and aspirate blood. This area was then injected with 10 cc of 1% lidocaine. Patient did get relief after this treatment and we were able to get x-rays. Discharge Plan Discharge Clinical Impression: Fall Qualifiers: Encounter type: initial encounter Qualified Code(s): W19.XXXA - Unspecified fall, initial encounter Right wrist sprain Qualifiers: Encounter type: initial encounter Qualified Code(s): S63.501A - Unspecified sprain of right wrist, initial encounter Patient Disposition: Home, Self-Care Instructions: Wrist Sprain (ED) Additional Instructions: Your right wrist was injected with lidocaine to try to help with your pain. The x-ray of your right wrist did not reveal any broken bone which is very reassuring. Wear the splint for 1-2 weeks to help reduce your pain. Take ibuprofen 200 mg pills, 3 pills every 6 hours as needed for pain. Take Tylenol (acetaminophen) 500 mg pills, 2 pills every 4 to 6 hours as needed for pain. Follow-up with your doctor in 2 days. Please return to the emergency department if your symptoms get worse or if you develop any symptoms that are concerning to you. Prescriptions: No Action benztropine 0.5 mg tablet 1 tab PO DAILY divalproex 250 mg tablet,delayed release (DR/EC) 2,000 mg PO TID olanzapine 2.5 mg tablet 1 tab PO BEDTIME carbamazepine [Tegretol] 200 mg tablet 300 mg PO DAILY carbamazepine [Tegretol] 200 mg tablet 200 mg PO DAILY@1400 carbamazepine [Tegretol] 200 mg tablet 500 mg PO BEDTIME calcium carbonate [Calcium Antacid] 200 mg calcium (500 mg) tablet,chewable 500 mg PO BID omeprazole 20 mg capsule,delayed release(DR/EC) 1 cap PO DAILY lorazepam 1 mg tablet 1 tab PO DAILY lorazepam 1 mg tablet 0.5 mg PO DAILY@1400 escitalopram oxalate 5 mg tablet 1 tab PO DAILY Cholestyramine Light 4 gram powder 3 ea PO DAILY Rx Instructions: give 3 teaspoons daily in the AM cholecalciferol (vitamin D3) 50 mcg (2,000 unit) capsule 1 cap PO DAILY lacosamide [Vimpat] 100 mg tablet 100 mg PO BEDTIME lorazepam 1 mg tablet 1.5 mg PO BEDTIME acetaminophen [Tylenol] 325 mg Tablet 325 mg PO Q6H PRN (Reason: Pain) cetirizine [Zyrtec] 10 mg Tablet 10 mg PO DAILY PRN (Reason: Allergy Symptoms) dextromethorphan-guaifenesin 10-100 mg/5 mL Syrup 5 ml PO Q4H PRN (Reason: Cough) omega 3-amx-mfd-fish oil [Fish Oil] 1,000 mg (120 mg-180 mg) Capsule 1 cap PO DAILY cefdinir 300 mg capsule 300 mg PO Q12H 5 Days Qty: 10 0RF
[2022-04-02] MEDS: Lidocaine HCl 1 % MPF 5 ML VIAL INFILTRATI (05:24)
[2022-04-02] MEDS: Acetaminophen 325 MG TABLET 975 MG PO (06:16)
--- NOTE | 2022-04-02 07:03 | PC.NURSE ---
This US/Pct called [facility] for transport, Eta for [id number] RN aware
[2022-04-02 09:54] VITALS: BP 140/75; PULSE 80; RESP 16; TEMP 36.8; O2SAT 96
== END 2022-04-02 10:58 | disposition home or self-care (01) ==
PROVIDERS: Emergency Provider Emergency Medicine Emergency Medical Services
DX: S63.501A Unspecified sprain of right wrist, initial encounter (principal); W01.0XXA Fall on same level from slipping, tripping and stumbling without subsequent striking against object, initial encounter; Y93.9 Activity, unspecified; Y92.9 Unspecified place or not applicable; Y99.9 Unspecified external cause status; Z79.899 Other long term (current) drug therapy
CPT/HCPCS: 10160; 29125; 73100; 99284

== ENCOUNTER 2022-04-04 16:05 | Emergency (ER) | payer MEDICARE, MEDICAID, SELFPAY ==
--- NOTE | ~2022-04-04 | XR_ITS ---
EXAMINATION: XR WRIST, RIGHT CLINICAL INFORMATION: Fall with injury COMPARISON: Right wrist radiographs 04/02/2022 TECHNIQUE: PA, lateral, and oblique views of the right wrist. FINDINGS: On the oblique view, there is an apparent transverse lucency through the trapezium equivocal for nondisplaced trabecular fracture. This is not confirmed on additional views. No definite or additional fracture is identified. Joint spaces are maintained. Scapholunate interval is preserved. No chondrocalcinosis or erosions. XR/XR wrist RT min 3V IMPRESSION: 1. Subtle linear lucency through the trapezium as seen on the oblique view and not confirmed on additional images. This may represent normal trabecular variation or possibly a nondisplaced trabecular fracture. Correlate clinically with pain referable to the trapezium.
--- NOTE | 2022-04-04 16:37 | ED.EXTPRO ---
HPI - Extremity Problem General Chief complaint: Fall Stated complaint: R rib pain Time Seen by Provider: 04/04/22 16:37 Source: patient Mode of arrival: EMS History of Present Illness HPI Narrative: patient lives at a retirement and has COVID. She has fallen a couple times injuring her right wrist Complaint: extremity pain Onset (ago): day(s) Pain Consistency: constant Location: right and upper extremity Associated symptoms: denies other symptoms Related Data Home Medications Medication Instructions Recorded Confirmed benztropine 0.5 mg tablet 1 tab PO DAILY 01/01/22 01/01/22 calcium carbonate 200 mg calcium 500 mg PO BID 01/01/22 01/01/22 (500 mg) chewable tablet (Calcium Antacid) carbamazepine 200 mg tablet 200 mg PO DAILY@1400 01/01/22 01/01/22 (Tegretol) carbamazepine 200 mg tablet 300 mg PO DAILY 01/01/22 01/02/22 (Tegretol) carbamazepine 200 mg tablet 500 mg PO BEDTIME 01/01/22 01/01/22 (Tegretol) cholecalciferol (vitamin D3) 50 1 cap PO DAILY 01/01/22 01/01/22 mcg (2,000 unit) capsule cholestyramine-aspartame 4 gram 3 ea PO DAILY 01/01/22 01/01/22 oral powder (Cholestyramine Light) divalproex 250 mg tablet,delayed 2,000 mg PO TID 01/01/22 01/01/22 release escitalopram oxalate 5 mg tablet 1 tab PO DAILY 01/01/22 01/01/22 lacosamide 100 mg tablet (Vimpat) 100 mg PO BEDTIME 01/01/22 01/01/22 lorazepam 1 mg tablet 0.5 mg PO DAILY@1400 01/01/22 01/01/22 lorazepam 1 mg tablet 1 tab PO DAILY 01/01/22 01/02/22 lorazepam 1 mg tablet 1.5 mg PO BEDTIME 01/01/22 01/01/22 olanzapine 2.5 mg tablet 1 tab PO BEDTIME 01/01/22 01/01/22 omeprazole 20 mg capsule,delayed 1 cap PO DAILY 01/01/22 01/01/22 release acetaminophen 325 mg tablet 325 mg PO Q6H PRN Pain 01/02/22 01/02/22 (Tylenol) cetirizine 10 mg tablet (Zyrtec) 10 mg PO DAILY PRN Allergy Symptoms 01/02/22 01/02/22 dextromethorphan-guaifenesin 10 5 ml PO Q4H PRN Cough 01/02/22 01/02/22 mg-100 mg/5 mL oral syrup omega 4-dzi-pfn-fish oil 1,000 mg 1 cap PO DAILY 01/02/22 01/02/22 (120 mg-180 mg) capsule (Fish Oil) Previous Rx's Medication Instructions Recorded cefdinir 300 mg capsule 300 mg PO Q12H 5 days #10 caps 01/09/22 Allergies Allergy/AdvReac Type Severity Reaction Status Date / Time amitriptyline Allergy Unknown Verified 04/04/22 16:41 amoxicillin Allergy Unknown Verified 04/04/22 16:41 budesonide Allergy Unknown Verified 04/04/22 16:41 [From Rhinocort Allergy] cheese Allergy Unknown Verified 04/04/22 16:41 Chocolate Allergy Unknown Verified 04/04/22 16:41 cigarette smoke Allergy Unknown Verified 04/04/22 16:41 ciprofloxacin [From Cipro] Allergy Unknown Verified 04/04/22 16:41 clarithromycin [From Biaxin] Allergy Unknown Verified 04/04/22 16:41 clonazepam [From Klonopin] Allergy Unknown Verified 04/04/22 16:41 fluticasone [From Flonase] Allergy Unknown Verified 04/04/22 16:41 monosodium glutamate [MSG] Allergy Unknown Verified 04/04/22 16:41 nut - unspecified Allergy Unknown Verified 04/04/22 16:41 Penicillins Allergy Unknown Verified 04/04/22 16:41 phenobarbital Allergy Unknown Verified 04/04/22 16:41 Seasonal Allergies Allergy Unknown Verified 04/04/22 16:41 strawberry Allergy Unknown Verified 04/04/22 16:41 Sulfa (Sulfonamide Allergy Unknown Verified 04/04/22 16:41 Antibiotics) sulfamethoxazole Allergy Unknown Verified 04/04/22 16:41 [From Bactrim] trimethoprim [From Bactrim] Allergy Unknown Verified 04/04/22 16:41 Review of Systems Review of Systems: Yes all other systems are reviewed and are negative Neurologic: Denies Sensory deficit (Neuro) PMFSH Past Medical History Medical History Cerebral palsy Seizure disorder Surgical History History of hysterectomy Family History Family History Other No family history of coronary artery disease Social History Social History Household Members: Other Housing: Other Housing Other:: Lives in a retirement Alcohol intake: never Patient Tobacco Use Status: Never used Tobacco Advance Directives: No Advance Directives Information Provided: No service: No Current occupational status: disabled Physical Exam Vital Signs: Vital Signs: Last Vital Signs Temp 98.1 F 04/04/22 16:44 Pulse 80 04/04/22 16:44 Resp 16 04/04/22 16:44 BP 153/70 H 04/04/22 16:44 Pulse Ox 99 04/04/22 16:44 O2 Del Method 04/04/22 16:44 BMI result Body Mass Index 34.7 Const: General: healthy appearing Nutritional Appearance: average body habitus Orientation/consciousness: oriented to person Limitations: other limitations (baseline cerebral palsy) HEENT: Head: Yes normal to inspection Ears: external ears normal General nose exam: Normal external nose present Mouth: Normal oral and palatal mucosa present and oropharynx normal Throat: Yes posterior oropharynx normal Eyes: General: appearance normal, both eyes and all related structures Neck: Other: supple Neck: Yes normal visual inspection Chest: Chest palpation & inspection: normal inspection of the chest Resp: Auscultation: clear to auscultation bilaterally Cardio: Jugular venous distension: no JVD Rate: regular rate Rhythm: regular rhythm Heart sounds: S1 normal heart sound present and S2 normal heart sound present GI: Inspection: Yes normal to inspection Palpation (GI): Soft to palpation, nontender and No hepatosplenomegaly present Auscultation: normal bowel sounds : General: Yes no CVA tenderness Back/Spine/Pelvis: Back: no CVA tenderness Skin: General skin exam: no rashes or lesions noted Neuro: General: oriented to person Cranial nerves: Yes CN's II-XII intact bilaterally Motor exam (neuro): 5/5 motor strength present throughout Sensory Exam: No Sensory deficit (Neuro) Extrem: Other: right wrist with some ecchymosis and tenderness. Psych: Appearance: grossly normal Course Reevaluation(s) Reevaluation #1: Patient with COVID, fell wrist with sprain Time: 17:14 MDM - Extremity (Nontraumatic) Imaging Data right wrist: My impression: degenerative changes Discharge Plan Discharge Clinical Impression: Right wrist sprain, COVID-19 Patient Disposition: Home, Self-Care Instructions: Wrist Sprain (ED), COVID-19 (Coronavirus Disease 2019) (ED) Additional Instructions: may continue with wrist splint Prescriptions: No Action benztropine 0.5 mg tablet 1 tab PO DAILY divalproex 250 mg tablet,delayed release (DR/EC) 2,000 mg PO TID olanzapine 2.5 mg tablet 1 tab PO BEDTIME carbamazepine [Tegretol] 200 mg tablet 300 mg PO DAILY carbamazepine [Tegretol] 200 mg tablet 200 mg PO DAILY@1400 carbamazepine [Tegretol] 200 mg tablet 500 mg PO BEDTIME calcium carbonate [Calcium Antacid] 200 mg calcium (500 mg) tablet,chewable 500 mg PO BID omeprazole 20 mg capsule,delayed release(DR/EC) 1 cap PO DAILY lorazepam 1 mg tablet 1 tab PO DAILY lorazepam 1 mg tablet 0.5 mg PO DAILY@1400 escitalopram oxalate 5 mg tablet 1 tab PO DAILY Cholestyramine Light 4 gram powder 3 ea PO DAILY Rx Instructions: give 3 teaspoons daily in the AM cholecalciferol (vitamin D3) 50 mcg (2,000 unit) capsule 1 cap PO DAILY lacosamide [Vimpat] 100 mg tablet 100 mg PO BEDTIME lorazepam 1 mg tablet 1.5 mg PO BEDTIME acetaminophen [Tylenol] 325 mg Tablet 325 mg PO Q6H PRN (Reason: Pain) cetirizine [Zyrtec] 10 mg Tablet 10 mg PO DAILY PRN (Reason: Allergy Symptoms) dextromethorphan-guaifenesin 10-100 mg/5 mL Syrup 5 ml PO Q4H PRN (Reason: Cough) omega 2-dlq-ggm-fish oil [Fish Oil] 1,000 mg (120 mg-180 mg) Capsule 1 cap PO DAILY cefdinir 300 mg capsule 300 mg PO Q12H 5 Days Qty: 10 0RF
[2022-04-04 16:42] VITALS: BP 156/80; PULSE 84; O2SAT 97
[2022-04-04 16:44] VITALS: BP 153/70; PULSE 80; RESP 16; TEMP 36.7; O2SAT 99; BMI 34.7
--- NOTE | 2022-04-04 17:40 | PC.NURSE ---
report called in to pt case finisher, primary contact, transport via ambulance back to shelter.
== END 2022-04-04 20:42 | disposition home or self-care (01) ==
PROVIDERS: Emergency Provider Emergency Medicine
DX: U07.1 COVID-19 (principal); S63.501A Unspecified sprain of right wrist, initial encounter; W19.XXXA Unspecified fall, initial encounter; G80.9 Cerebral palsy, unspecified; Z91.81 History of falling; Y93.9 Activity, unspecified; Y92.049 Unspecified place in boarding-house as the place of occurrence of the external cause; Y99.9 Unspecified external cause status
CPT/HCPCS: 73110; 99282; 99283

== ENCOUNTER 2022-04-12 13:07 | Outpatient (REF) | payer MEDICARE, MEDICAID, SELFPAY ==
--- NOTE | ~2022-04-12 | XR_ITS ---
EXAMINATION: XR WRIST, RIGHT CLINICAL INFORMATION: Wrist pain COMPARISON: Radiographs right wrist 04/04/2022, 04/02/2022 TECHNIQUE: PA, lateral, and oblique views of the right wrist. FINDINGS: There is no visible acute or healing fracture or dislocation or destructive process. The ulnar variance is neutral. The carpal bones appear intact. No visible fracture of the trapezium. No joint narrowing or erosive changes or chondrocalcinosis. XR/XR wrist RT min 3V IMPRESSION: No visible fracture or dislocation.
== END 2022-04-12 13:08 | disposition home or self-care (01) ==
LOC: HO.HOSX 13:07
PROVIDERS: Visit Provider Physician Assistant
DX: M25.531 Pain in right wrist (principal); S62.501A Fracture of unspecified phalanx of right thumb, initial encounter for closed fracture; W06.XXXA Fall from bed, initial encounter; Y93.9 Activity, unspecified; Y92.9 Unspecified place or not applicable; Y99.8 Other external cause status
CPT/HCPCS: 73110; 99202

== ENCOUNTER 2022-05-10 07:26 | Outpatient (REF) | payer MEDICARE, MEDICAID, SELFPAY ==
--- NOTE | ~2022-05-10 | XR_ITS ---
EXAMINATION: XR HAND, RIGHT CLINICAL INFORMATION: Pain in the right hand. COMPARISON: 04/12/2022 TECHNIQUE: PA, lateral, and oblique views of the right hand. FINDINGS: No fracture or dislocation. Alignment is maintained. Joint spaces are maintained. No osseous erosion. The soft tissues appear unremarkable. XR/XR hand RT min 3V IMPRESSION: Normal right hand.
== END 2022-05-10 07:27 | disposition home or self-care (01) ==
LOC: HO.HOSX 07:26
PROVIDERS: Visit Provider Physician Assistant
DX: M79.641 Pain in right hand (principal)
CPT/HCPCS: 73130

== ENCOUNTER 2022-05-31 21:59 | Emergency (ER) | payer MEDICARE, MEDICAID, SELFPAY ==
--- NOTE | ~2022-05-31 | XR_ITS ---
EXAMINATION: LUMBAR SPINE, RIGHT SHOULDER, RIGHT ELBOW, RIGHT HAND CLINICAL INFORMATION: FOOSH with hand pain COMPARISON: Right hand and wrist 05/10/2022 TECHNIQUE: 3 views lumbosacral spine, 3 views right shoulder, 3 views right elbow, 3 views right hand FINDINGS: Lumbar spine: Some mild spondylitic endplate changes are present with some osteophytes. Vertebral body heights and disc spaces are well preserved. No bony destructive lesions or fractures are noted. Mild degenerative changes are seen in the hips with superior joint space narrowing. Surgical clips are noted in the gallbladder fossa. Right shoulder: No significant bone, joint or soft tissue abnormality is seen. Right elbow: No significant bone, joint or soft tissue abnormality is seen. Right hand: Degenerative changes are seen at the DIP joints, the first metacarpal phalangeal joint and the radiocarpal joint. No fractures are seen. XR/XR shoulder RT min 2V IMPRESSION: Minimal degenerative changes as described above. No fracture is detected.
--- NOTE | ~2022-05-31 | XR_ITS ---
EXAMINATION: LUMBAR SPINE, RIGHT SHOULDER, RIGHT ELBOW, RIGHT HAND CLINICAL INFORMATION: FOOSH with hand pain COMPARISON: Right hand and wrist 05/10/2022 TECHNIQUE: 3 views lumbosacral spine, 3 views right shoulder, 3 views right elbow, 3 views right hand FINDINGS: Lumbar spine: Some mild spondylitic endplate changes are present with some osteophytes. Vertebral body heights and disc spaces are well preserved. No bony destructive lesions or fractures are noted. Mild degenerative changes are seen in the hips with superior joint space narrowing. Surgical clips are noted in the gallbladder fossa. Right shoulder: No significant bone, joint or soft tissue abnormality is seen. Right elbow: No significant bone, joint or soft tissue abnormality is seen. Right hand: Degenerative changes are seen at the DIP joints, the first metacarpal phalangeal joint and the radiocarpal joint. No fractures are seen. XR/XR hand RT min 3V IMPRESSION: Minimal degenerative changes as described above. No fracture is detected.
--- NOTE | ~2022-05-31 | XR_ITS ---
EXAMINATION: LUMBAR SPINE, RIGHT SHOULDER, RIGHT ELBOW, RIGHT HAND CLINICAL INFORMATION: FOOSH with hand pain COMPARISON: Right hand and wrist 05/10/2022 TECHNIQUE: 3 views lumbosacral spine, 3 views right shoulder, 3 views right elbow, 3 views right hand FINDINGS: Lumbar spine: Some mild spondylitic endplate changes are present with some osteophytes. Vertebral body heights and disc spaces are well preserved. No bony destructive lesions or fractures are noted. Mild degenerative changes are seen in the hips with superior joint space narrowing. Surgical clips are noted in the gallbladder fossa. Right shoulder: No significant bone, joint or soft tissue abnormality is seen. Right elbow: No significant bone, joint or soft tissue abnormality is seen. Right hand: Degenerative changes are seen at the DIP joints, the first metacarpal phalangeal joint and the radiocarpal joint. No fractures are seen. XR/XR lumbar spine 2-3V IMPRESSION: Minimal degenerative changes as described above. No fracture is detected.
--- NOTE | ~2022-05-31 | CT_ITS ---
EXAMINATION: NONCONTRAST HEAD CT NONCONTRAST CERVICAL SPINE CT INDICATION INFORMATION: Fall COMPARISON: None TECHNIQUE: Separate noncontrast CT examinations of the head and cervical spine were performed. Coronal and sagittal images were created for each examination at the technologist workstation. This CT examination was performed using dose optimization techniques as appropriate, variously including the following: *Automated exposure control *Adjustment of mA and/or kV according to patient size (this includes techniques or standardized protocols for targeted exams where dose is matched to indication/reason for exam; i.e. extremities or head) *Use of iterative reconstruction technique DLP: 1168 mGy-cm FINDINGS: Head: There is no evidence of acute intracranial hemorrhage or territorial infarction. No abnormal mass effect or midline shift is seen. Owen to white matter differentiation is well preserved. No extra-axial fluid collections are identified. No hydrocephalus. No significant volume loss. There is no abnormal attenuation within the brain parenchyma. No acute osseous or soft tissue abnormality. The mastoid air cells and visualized portions of the paranasal sinuses are well aerated. Cervical spine: There is anatomic alignment of the vertebral bodies and posterior elements. The atlantoaxial and atlantooccipital articulations are intact. Vertebral body heights and intervertebral disc spaces are maintained. No evidence of acute fracture. No prevertebral soft tissue swelling. Calcification of the ligamentum nuchae. Visualized portions of the lung apices are unremarkable. Calcifications in the thyroid gland noted. CT/CT cervical spine wo IV con IMPRESSION: 1. No acute intracranial finding. 2. No acute fracture or malalignment of the cervical spine.
--- NOTE | ~2022-05-31 | XR_ITS ---
EXAMINATION: LUMBAR SPINE, RIGHT SHOULDER, RIGHT ELBOW, RIGHT HAND CLINICAL INFORMATION: FOOSH with hand pain COMPARISON: Right hand and wrist 05/10/2022 TECHNIQUE: 3 views lumbosacral spine, 3 views right shoulder, 3 views right elbow, 3 views right hand FINDINGS: Lumbar spine: Some mild spondylitic endplate changes are present with some osteophytes. Vertebral body heights and disc spaces are well preserved. No bony destructive lesions or fractures are noted. Mild degenerative changes are seen in the hips with superior joint space narrowing. Surgical clips are noted in the gallbladder fossa. Right shoulder: No significant bone, joint or soft tissue abnormality is seen. Right elbow: No significant bone, joint or soft tissue abnormality is seen. Right hand: Degenerative changes are seen at the DIP joints, the first metacarpal phalangeal joint and the radiocarpal joint. No fractures are seen. XR/XR elbow RT 2V IMPRESSION: Minimal degenerative changes as described above. No fracture is detected.
--- NOTE | ~2022-05-31 | CT_ITS ---
EXAMINATION: NONCONTRAST HEAD CT NONCONTRAST CERVICAL SPINE CT INDICATION INFORMATION: Fall COMPARISON: None TECHNIQUE: Separate noncontrast CT examinations of the head and cervical spine were performed. Coronal and sagittal images were created for each examination at the technologist workstation. This CT examination was performed using dose optimization techniques as appropriate, variously including the following: *Automated exposure control *Adjustment of mA and/or kV according to patient size (this includes techniques or standardized protocols for targeted exams where dose is matched to indication/reason for exam; i.e. extremities or head) *Use of iterative reconstruction technique DLP: 1168 mGy-cm FINDINGS: Head: There is no evidence of acute intracranial hemorrhage or territorial infarction. No abnormal mass effect or midline shift is seen. Owen to white matter differentiation is well preserved. No extra-axial fluid collections are identified. No hydrocephalus. No significant volume loss. There is no abnormal attenuation within the brain parenchyma. No acute osseous or soft tissue abnormality. The mastoid air cells and visualized portions of the paranasal sinuses are well aerated. Cervical spine: There is anatomic alignment of the vertebral bodies and posterior elements. The atlantoaxial and atlantooccipital articulations are intact. Vertebral body heights and intervertebral disc spaces are maintained. No evidence of acute fracture. No prevertebral soft tissue swelling. Calcification of the ligamentum nuchae. Visualized portions of the lung apices are unremarkable. Calcifications in the thyroid gland noted. CT/CT head/brain wo IV con IMPRESSION: 1. No acute intracranial finding. 2. No acute fracture or malalignment of the cervical spine.
[2022-05-31 22:20] VITALS: BP 149/82; BP 170/90; PULSE 77; PULSE 78; RESP 18; TEMP 36.6; O2SAT 95; O2SAT 97; BMI 27.5
--- NOTE | 2022-05-31 22:27 | ED.EXTPRO ---
HPI - Extremity Problem General Chief complaint: Extremity Injury, Upper Stated complaint: right hand pain after fall Time Seen by Provider: 05/31/22 22:20 Source: patient, EMS and RN notes reviewed Mode of arrival: EMS Limitations: other (poor historian ) History of Present Illness HPI Narrative: 47-year-old female with a PMHx of developmental delay, currently residing at a fdc, who presents to the ED s/p fall prior to arrival. The patient tells me that she was walking in her bedroom tonight when she tripped over her riding boots and fell, landing on her knees and outstretched right hand. She tells me that she has pain in the knuckles of the right hand and in her lower back currently, both new since the fall. Denies changes in sensation or limitation of movement throughout. She denies any symptoms preceding the fall today. She denies headstrike, LOC, headache, dizziness, chest pain, shortness of breath, incontinence/retention of stool or urine, saddle anesthesias, abdominal pain, nausea, or vomiting. Not on anticoagulation. To note patient denied preceding sx such as CP and SOB. Related Data Home Medications Medication Instructions Recorded Confirmed calcium carbonate 200 mg calcium 500 mg PO BID 01/01/22 01/01/22 (500 mg) chewable tablet (Calcium Antacid) carbamazepine 200 mg tablet 200 mg PO DAILY@1400 01/01/22 01/01/22 (Tegretol) carbamazepine 200 mg tablet 300 mg PO DAILY 01/01/22 01/02/22 (Tegretol) carbamazepine 200 mg tablet 500 mg PO BEDTIME 01/01/22 01/01/22 (Tegretol) cholecalciferol (vitamin D3) 50 1 cap PO DAILY 01/01/22 01/01/22 mcg (2,000 unit) capsule cholestyramine-aspartame 4 gram 3 ea PO DAILY 01/01/22 01/01/22 oral powder (Cholestyramine Light) divalproex 250 mg tablet,delayed 2,000 mg PO TID 01/01/22 01/01/22 release escitalopram oxalate 5 mg tablet 1 tab PO DAILY 01/01/22 01/01/22 lacosamide 100 mg tablet (Vimpat) 100 mg PO BEDTIME 01/01/22 01/01/22 lorazepam 1 mg tablet 0.5 mg PO DAILY@1400 01/01/22 01/01/22 lorazepam 1 mg tablet 1 tab PO DAILY 01/01/22 01/02/22 lorazepam 1 mg tablet 1.5 mg PO BEDTIME 01/01/22 01/01/22 olanzapine 2.5 mg tablet 1 tab PO BEDTIME 01/01/22 01/01/22 omeprazole 20 mg capsule,delayed 1 cap PO DAILY 01/01/22 01/01/22 release acetaminophen 325 mg tablet 325 mg PO Q6H PRN Pain 01/02/22 01/02/22 (Tylenol) cetirizine 10 mg tablet (Zyrtec) 10 mg PO DAILY PRN Allergy Symptoms 01/02/22 01/02/22 dextromethorphan-guaifenesin 10 5 ml PO Q4H PRN Cough 01/02/22 01/02/22 mg-100 mg/5 mL oral syrup omega 7-zsb-rjw-fish oil 1,000 mg 1 cap PO DAILY 01/02/22 01/02/22 (120 mg-180 mg) capsule (Fish Oil) Previous Rx's Medication Instructions Recorded lidocaine 5 % topical patch 1 patch topical DAILY PRN pain #15 06/01/22 ea Allergies Allergy/AdvReac Type Severity Reaction Status Date / Time amitriptyline Allergy Unknown Verified 04/12/22 13:01 amoxicillin Allergy Unknown Verified 04/12/22 13:01 budesonide Allergy Unknown Verified 04/12/22 13:01 [From Rhinocort Allergy] cheese Allergy Unknown Verified 04/12/22 13:01 Chocolate Allergy Unknown Verified 04/12/22 13:01 cigarette smoke Allergy Unknown Verified 04/12/22 13:01 ciprofloxacin [From Cipro] Allergy Unknown Verified 04/12/22 13:01 clarithromycin [From Biaxin] Allergy Unknown Verified 04/12/22 13:01 clonazepam [From Klonopin] Allergy Unknown Verified 04/12/22 13:01 fluticasone [From Flonase] Allergy Unknown Verified 04/12/22 13:01 monosodium glutamate [MSG] Allergy Unknown Verified 04/12/22 13:01 nut - unspecified Allergy Unknown Verified 04/12/22 13:01 Penicillins Allergy Unknown Verified 04/12/22 13:01 phenobarbital Allergy Unknown Verified 04/12/22 13:01 Seasonal Allergies Allergy Unknown Verified 04/12/22 13:01 strawberry Allergy Unknown Verified 04/12/22 13:01 Sulfa (Sulfonamide Allergy Unknown Verified 04/12/22 13:01 Antibiotics) sulfamethoxazole Allergy Unknown Verified 04/12/22 13:01 [From Bactrim] trimethoprim [From Bactrim] Allergy Unknown Verified 04/12/22 13:01 Review of Systems Review of Systems: Constitutional : No Weight loss, No Fever, No Chills, No Fatigue, No Malaise ENT/Mouth : No sore throat, No Rhinorrhea Eyes: No Eye Pain, No Swelling, No Redness Cardiovascular : No Chest Pain, No SOB, No Dyspnea on Exertion, No Orthopnea, No Edema, No Palpitations Respiratory : No Cough, No Sputum, No Wheezing Gastrointestinal : No Nausea, No Vomiting, No Diarrhea, No Constipation, No abdominal Pain, No Hematochezia, No Melena Genitourinary : No Dysuria, No Urinary Frequency, No Hematuria, Musculoskeletal : + joint pain, + Myalgias, No Joint Swelling Skin : No Skin Lesions, No rash Neuro : No Weakness, No Numbness, No Dizziness, No Headache All other systems reviewed and are negative Yes all other systems are reviewed and are negative [facility] Past Medical History Attestation statement: The following information was validated with the patient. Source: unable to obtain and obtained from family Medical History (Updated 06/01/22 @ 00:08 by VIRGINIA Baker) Anxiety Bipolar 1 disorder Cerebral palsy GERD (gastroesophageal reflux disease) Mood disorder Seizure disorder Surgical History History of hysterectomy Family History Family History Other No family history of coronary artery disease Social History Social History Household Members: Other Housing: Other Housing Other:: Lives in a fdc Alcohol intake: never Patient Tobacco Use Status: Never used Tobacco Advance Directives: No Advance Directives Information Provided: No Patient : No service: No Current occupational status: disabled Physical Exam Vital Signs: Vital Signs: Last Vital Signs Temp 97.8 F 05/31/22 22:20 Pulse 72 05/31/22 23:51 Resp 18 05/31/22 23:51 BP 125/69 05/31/22 23:51 Pulse Ox 94 05/31/22 23:51 O2 Del Method 05/31/22 23:51 BMI result Body Mass Index 27.5 VSS Appearance: Alert.? Oriented X3.? No acute distress. Head: Normocephalic, atraumatic, no step-offs or deformities Eyes: Pupils equal, round and reactive to light.? Neck: Normal inspection.? Neck supple.? CVS: Normal heart rate and rhythm.? Pulses normal.? Respiratory: No respiratory distress.? Breath sounds normal.? Abdomen: Soft and nontender.? Skin: Skin warm and dry.? Normal skin color.? Normal skin turgor.? Extremities: No lower extremity edema.? No calf ttp. 2+ DTR to Lower extremies 5/5 strength to bilateral upper and lower extremities. Tenderness to palpation throughout right hand and wrist, patient reports worst on MCP joints. FROM of right hand, able to lift and move backpack with right hand without difficulty. No numbness or changes in sensation. 2+ radial pulses bilaterally. No wrist drop. 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 Normal capillary refill. Back: Mild subjective midline and paraspinal lumbar tenderness to palpation, no C-spine tenderness, full range of motion, no CVA tenderness bilaterally Neuro: Oriented X 3.? No motor deficit.? No sensory deficit. CN 2-12 intact. No saddle paresthesias. Ambulating w/ steady gait w/ normal coordination Course Reevaluation(s) Reevaluation #1: Imaging concerning for degenerative changes however no fractures or dislocations. CT of the head and cervical spine with no acute findings. No signs of intracranial hemorrhage, cervical spine without fractures, traumatic subluxations, dislocations. Patient reports she is feeling much better. Ambulating with steady gait, hemodynamically stable. Patient will be discharged home with Lidoderm patches for back pain. Advised to take ibuprofen every 6 hours, Tylenol every 4 as needed for pain or discomfort. This time I feel comfortable discharge home back to the fdc advised to return with new or worsening symptoms Time: 00:32 MDM - Extremity (Nontraumatic) MDM Narrative Medical decision making narrative: 22:30 47 y/o F presenting with right hand pain and low back pain s/p fall. Denies headstrike or LOC. Not on anticoagulation. PE remarkable for pain with palpation throughout the right hand, full range of motion, sensation intact, 2+ radial pulses. Midline and paraspinal lumbar tenderness to palpation. Ambulatory without difficulty. Suspect strain of the right wrist and back. Less likely acute fracture or dislocation. Unlikely cauda equina or epidural abscess based on patient's H&P. Plan to obtain x-rays of the right hand, elbow, shoulder, and lumbar spine. Medical Records Attestation: I reviewed the patient's medical records. Lab Data Attestation: I reviewed the patient's lab results. Critical Care Time Critical Care Time Critical Care Time: No Discharge Plan Discharge Clinical Impression: Fall, Hand pain, Back pain Patient Disposition: Home, Self-Care Instructions: Back Pain (ED), Fall Prevention (ED) Additional Instructions: Take your medications as prescribed. If you were prescribed antibiotics today, it is important that you take your medication to their entirety, do not skip any doses, do not finish them early. Follow-up with your primary care provider this week. Return to the emergency department with new or worsening symptoms. Such as fevers, chills, chest pain, shortness of breath, nausea, vomiting, dizziness, headache, vision changes, lethargy, inability to control your bladder or bowel , loss of sensation to her lower extremities, worsening pain. In case of emergency call 911 FINDINGS: Lumbar spine: Some mild spondylitic endplate changes are present with some osteophytes. Vertebral body heights and disc spaces are well preserved. No bony destructive lesions or fractures are noted. Mild degenerative changes are seen in the hips with superior joint space narrowing. Surgical clips are noted in the gallbladder fossa. Right shoulder: No significant bone, joint or soft tissue abnormality is seen. Right elbow: No significant bone, joint or soft tissue abnormality is seen. Right hand: Degenerative changes are seen at the DIP joints, the first metacarpal phalangeal joint and the radiocarpal joint. No fractures are seen. CT/CT head/brain & cervical spine wo IV con IMPRESSION: ? 1. No acute intracranial finding. 2. No acute fracture or malalignment of the cervical spine. ? Prescriptions: New lidocaine 5 % adhesive patch,medicated 1 patch topical DAILY PRN (Reason: pain) Qty: 15 0RF Rx Instructions: leave on most painful area for up to 12 hrs No Action divalproex 250 mg tablet,delayed release (DR/EC) 2,000 mg PO TID olanzapine 2.5 mg tablet 1 tab PO BEDTIME carbamazepine [Tegretol] 200 mg tablet 300 mg PO DAILY carbamazepine [Tegretol] 200 mg tablet 200 mg PO DAILY@1400 carbamazepine [Tegretol] 200 mg tablet 500 mg PO BEDTIME calcium carbonate [Calcium Antacid] 200 mg calcium (500 mg) tablet,chewable 500 mg PO BID omeprazole 20 mg capsule,delayed release(DR/EC) 1 cap PO DAILY lorazepam 1 mg tablet 1 tab PO DAILY lorazepam 1 mg tablet 0.5 mg PO DAILY@1400 escitalopram oxalate 5 mg tablet 1 tab PO DAILY Cholestyramine Light 4 gram powder 3 ea PO DAILY Rx Instructions: give 3 teaspoons daily in the AM cholecalciferol (vitamin D3) 50 mcg (2,000 unit) capsule 1 cap PO DAILY lacosamide [Vimpat] 100 mg tablet 100 mg PO BEDTIME lorazepam 1 mg tablet 1.5 mg PO BEDTIME acetaminophen [Tylenol] 325 mg Tablet 325 mg PO Q6H PRN (Reason: Pain) cetirizine [Zyrtec] 10 mg Tablet 10 mg PO DAILY PRN (Reason: Allergy Symptoms) dextromethorphan-guaifenesin 10-100 mg/5 mL Syrup 5 ml PO Q4H PRN (Reason: Cough) omega 5-tth-qys-fish oil [Fish Oil] 1,000 mg (120 mg-180 mg) Capsule 1 cap PO DAILY Referrals: Physician,Unknown J [Primary Care Provider] - 2 days
[2022-05-31 23:51] VITALS: BP 125/69; PULSE 72; RESP 18; O2SAT 94
[2022-06-01 02:00] VITALS: BP 125/71; PULSE 67; RESP 17; O2SAT 95
== END 2022-06-01 02:40 | disposition home or self-care (01) ==
PROVIDERS: Emergency Provider Emergency Medicine
DX: M79.641 Pain in right hand (principal); M54.50 Low back pain, unspecified; Z91.81 History of falling
CPT/HCPCS: 70450; 72100; 72125; 73030; 73070; 73130; 99283; 99284

== ENCOUNTER 2022-08-14 21:38 | Emergency (ER) | payer MEDICARE, MEDICAID, SELFPAY ==
--- NOTE | ~2022-08-14 | CT_ITS ---
EXAMINATION: NONCONTRAST HEAD CT NONCONTRAST CERVICAL SPINE CT INDICATION INFORMATION: Head injury and dizziness COMPARISON: 05/31/2022 TECHNIQUE: Separate noncontrast CT examinations of the head and cervical spine were performed. Coronal and sagittal images were created for each examination at the technologist workstation. This CT examination was performed using dose optimization techniques as appropriate, variously including the following: *Automated exposure control *Adjustment of mA and/or kV according to patient size (this includes techniques or standardized protocols for targeted exams where dose is matched to indication/reason for exam; i.e. extremities or head) *Use of iterative reconstruction technique DLP: 1191 mGy-cm FINDINGS: Head: There is no evidence of acute intracranial hemorrhage or territorial infarction. No abnormal mass effect or midline shift is seen. Owen to white matter differentiation is well preserved. No extra-axial fluid collections are identified. No hydrocephalus. No significant volume loss. There is no abnormal attenuation within the brain parenchyma. No acute osseous or soft tissue abnormality. Hyperostosis frontalis. The mastoid air cells and visualized portions of the paranasal sinuses are well aerated. Cervical spine: There is anatomic alignment of the vertebral bodies and posterior elements. The atlantoaxial and atlantooccipital articulations are intact. Vertebral body heights and intervertebral disc spaces are maintained. No evidence of acute fracture. No prevertebral soft tissue swelling. Visualized portions of the lung apices are unremarkable. The thyroid gland is unremarkable. CT/CT cervical spine wo IV con IMPRESSION: * No acute intracranial bleed or territorial infarction. * No acute fracture or traumatic malalignment of the cervical spine.
--- NOTE | ~2022-08-14 | CT_ITS ---
EXAMINATION: NONCONTRAST HEAD CT NONCONTRAST CERVICAL SPINE CT INDICATION INFORMATION: Head injury and dizziness COMPARISON: 05/31/2022 TECHNIQUE: Separate noncontrast CT examinations of the head and cervical spine were performed. Coronal and sagittal images were created for each examination at the technologist workstation. This CT examination was performed using dose optimization techniques as appropriate, variously including the following: *Automated exposure control *Adjustment of mA and/or kV according to patient size (this includes techniques or standardized protocols for targeted exams where dose is matched to indication/reason for exam; i.e. extremities or head) *Use of iterative reconstruction technique DLP: 1191 mGy-cm FINDINGS: Head: There is no evidence of acute intracranial hemorrhage or territorial infarction. No abnormal mass effect or midline shift is seen. Owen to white matter differentiation is well preserved. No extra-axial fluid collections are identified. No hydrocephalus. No significant volume loss. There is no abnormal attenuation within the brain parenchyma. No acute osseous or soft tissue abnormality. Hyperostosis frontalis. The mastoid air cells and visualized portions of the paranasal sinuses are well aerated. Cervical spine: There is anatomic alignment of the vertebral bodies and posterior elements. The atlantoaxial and atlantooccipital articulations are intact. Vertebral body heights and intervertebral disc spaces are maintained. No evidence of acute fracture. No prevertebral soft tissue swelling. Visualized portions of the lung apices are unremarkable. The thyroid gland is unremarkable. CT/CT head/brain wo IV con IMPRESSION: * No acute intracranial bleed or territorial infarction. * No acute fracture or traumatic malalignment of the cervical spine.
[2022-08-14 21:45] VITALS: BP 154/80; PULSE 70; O2SAT 99
[2022-08-14 21:47] VITALS: BP 140/88; PULSE 73; RESP 20; TEMP 36.6; O2SAT 95; BMI 28.3
--- NOTE | 2022-08-14 21:54 | ED_ITS ---
HPI - Fall General Stated Complaint: Fall Time Seen by Provider: 08/14/22 21:44 Source: patient and EMS Mode of arrival: EMS Limitations: no limitations History of Present Illness HPI Narrative: 47-year-old female history of developmental delay came in by ambulance from a [facility] after she slipped and fell in the shower hitting her head, unknown LOC, patient is complaining of neck pain otherwise no CP, no SOB, no abdominal pain, no weakness, no numbness, no nausea, no vomiting. Patient feeling dizzy and headache to the left side which she hit her head. Related Data Home Medications Medication Instructions Recorded Confirmed calcium carbonate 200 mg calcium 500 mg PO BID 01/01/22 01/01/22 (500 mg) chewable tablet (Calcium Antacid) carbamazepine 200 mg tablet 200 mg PO DAILY@1400 01/01/22 01/01/22 (Tegretol) carbamazepine 200 mg tablet 300 mg PO DAILY 01/01/22 01/02/22 (Tegretol) carbamazepine 200 mg tablet 500 mg PO BEDTIME 01/01/22 01/01/22 (Tegretol) cholecalciferol (vitamin D3) 50 1 cap PO DAILY 01/01/22 01/01/22 mcg (2,000 unit) capsule cholestyramine-aspartame 4 gram 3 ea PO DAILY 01/01/22 01/01/22 oral powder (Cholestyramine Light) divalproex 250 mg tablet,delayed 2,000 mg PO TID 01/01/22 01/01/22 release escitalopram oxalate 5 mg tablet 1 tab PO DAILY 01/01/22 01/01/22 lacosamide 100 mg tablet (Vimpat) 100 mg PO BEDTIME 01/01/22 01/01/22 lorazepam 1 mg tablet 0.5 mg PO DAILY@1400 01/01/22 01/01/22 lorazepam 1 mg tablet 1 tab PO DAILY 01/01/22 01/02/22 lorazepam 1 mg tablet 1.5 mg PO BEDTIME 01/01/22 01/01/22 olanzapine 2.5 mg tablet 1 tab PO BEDTIME 01/01/22 01/01/22 omeprazole 20 mg capsule,delayed 1 cap PO DAILY 01/01/22 01/01/22 release acetaminophen 325 mg tablet 325 mg PO Q6H PRN Pain 01/02/22 01/02/22 (Tylenol) cetirizine 10 mg tablet (Zyrtec) 10 mg PO DAILY PRN Allergy Symptoms 01/02/22 01/02/22 dextromethorphan-guaifenesin 10 5 ml PO Q4H PRN Cough 01/02/22 01/02/22 mg-100 mg/5 mL oral syrup omega 9-iiz-knj-fish oil 1,000 mg 1 cap PO DAILY 01/02/22 01/02/22 (120 mg-180 mg) capsule (Fish Oil) Previous Rx's Medication Instructions Recorded lidocaine 5 % topical patch 1 patch topical DAILY PRN pain #15 06/01/22 ea Allergies Allergy/AdvReac Type Severity Reaction Status Date / Time amitriptyline Allergy Unknown Verified 08/14/22 21:47 amoxicillin Allergy Unknown Verified 08/14/22 21:47 budesonide Allergy Unknown Verified 08/14/22 21:47 [From Rhinocort Allergy] cheese Allergy Unknown Verified 08/14/22 21:47 Chocolate Allergy Unknown Verified 08/14/22 21:47 cigarette smoke Allergy Unknown Verified 08/14/22 21:47 ciprofloxacin [From Cipro] Allergy Unknown Verified 08/14/22 21:47 clarithromycin [From Biaxin] Allergy Unknown Verified 08/14/22 21:47 clonazepam [From Klonopin] Allergy Unknown Verified 08/14/22 21:47 fluticasone [From Flonase] Allergy Unknown Verified 08/14/22 21:47 monosodium glutamate [MSG] Allergy Unknown Verified 08/14/22 21:47 nut - unspecified Allergy Unknown Verified 08/14/22 21:47 Penicillins Allergy Unknown Verified 08/14/22 21:47 phenobarbital Allergy Unknown Verified 08/14/22 21:47 Seasonal Allergies Allergy Unknown Verified 08/14/22 21:47 strawberry Allergy Unknown Verified 08/14/22 21:47 Sulfa (Sulfonamide Allergy Unknown Verified 08/14/22 21:47 Antibiotics) sulfamethoxazole Allergy Unknown Verified 08/14/22 21:47 [From Bactrim] trimethoprim [From Bactrim] Allergy Unknown Verified 08/14/22 21:47 Review of Systems Review of Systems: All other systems are reviewed and are negative Constitutional: Reports as per HPI and Reports no additional constitutional complaints Eyes: Reports as per HPI and Reports no additional eye complaints Reports system reviewed and no additional complaints, except as documented Cardiovascular: Reports as per HPI and Reports no additional cardiovascular complaints Respiratory: Reports as per HPI and Reports no additional respiratory complaints Gastrointestinal: Reports as per HPI and Reports no additional gastrointestinal complaints Genitourinary: Reports no additional female genitourinary complaints Musculoskeletal: Reports no additional musculoskeletal complaints Skin/Breast: Reports system reviewed and no additional complaints, except as docu Psychiatric: Reports no additional psychiatric complaints Endocrine: Reports no additional endocrine complaints Hematologic/Lymphatic: Reports no additional hematologic/lymphatic complaints Allergic/Immunologic: Reports no additional allergic/immunologic complaints Reports system reviewed and no additional complaints, except as documented and Reports Abnormal speech present [facility] Past Medical History Medical History Anxiety Bipolar 1 disorder Cerebral palsy GERD (gastroesophageal reflux disease) Mood disorder Seizure disorder Surgical History History of hysterectomy Family History Family History Other No family history of coronary artery disease Social History Social History Household Members: Other Housing: Other Housing Other:: Lives in a fdc Alcohol intake: never Patient Tobacco Use Status: Never used Tobacco service: No Current occupational status: disabled Physical Exam Vital Signs: Vital Signs: Vital signs have been reviewed as appeared to be correct. Blood pressure normal. Heart rate normal. Respiration rate normal. Temperature normal. Oxygen saturation normal. Appearance: Alert. Oriented X3. No acute distress. Head: Normal external exam, tenderness over left occipital area no hematoma, no step-off or deformity.. No Shaffer signs noted. No raccoon eyes noted Eyes: PERRLA. EOMI. Conjunctiva and sclera normal. Eyelids normal. ENT: TM's Normal. Pharynx normal. Uvula midline. Moist mucous membranes. No trismus noted. No drooling noted. No muffled voice noted. Neck: Normal inspection. Neck supple. FROM. No adenopathy. Thyroid Normal. No meningeal signs. No neck mass noted. CVS: Normal heart rate and rhythm. Heart sound normal. No murmurs noted. Pulses normal throughout. Respiratory: No respiratory distress. Painless inspiration. Breath sounds normal. No wheezes/rales/rhonchi noted. Chest nontender. No accessory muscle usage noted or decreased air movement noted. Abdomen: Soft and nontender. Bowel sounds normal in all 4 quadrants. No distention noted. No organomegaly noted. No visible injury noted. Back: No CVA tenderness. Full range of motion noted. Skin: Skin warm and dry. Normal skin color. Normal skin turgor. No rashes/lesions/lacerations noted. Extremities: No lower extremity edema. Extremities exhibit normal range of motion. Extremities nontender. Neuro: Oriented X 3. GCS 15. Cranial nerve exam: II-XII are grossly intact No motor deficit. No sensory deficit. Reflexes normal. Course Course Course Narrative: 47-year-old female status post mechanical fall by slipping on a wet floor in the shower with closed head injury and neck pain with negative radiographic studies. Patient was GCS 15 ambulating in the emergency department will discharge the patient back to the [facility]. Medical Decision Making Medical Decision Making Independent interpretation of EKG, rhythm strip, radiology study: Independent interp EKG,rhythm strip, radiology study I performed an independent interpretation of the: CT Scan (Head and cervical spine CT) My interpretation is no acute intracranial pathology, no cervical spine fracture or subluxation. Discharge Plan Discharge Clinical Impression: Accident due to mechanical fall without injury, Closed head injury Patient Disposition: Home, Self-Care Instructions: Head Injury (ED) Prescriptions: No Action lidocaine 5 % adhesive patch,medicated 1 patch topical DAILY PRN (Reason: pain) Qty: 15 0RF Rx Instructions: leave on most painful area for up to 12 hrs divalproex 250 mg tablet,delayed release (DR/EC) 2,000 mg PO TID olanzapine 2.5 mg tablet 1 tab PO BEDTIME carbamazepine [Tegretol] 200 mg tablet 300 mg PO DAILY carbamazepine [Tegretol] 200 mg tablet 200 mg PO DAILY@1400 carbamazepine [Tegretol] 200 mg tablet 500 mg PO BEDTIME calcium carbonate [Calcium Antacid] 200 mg calcium (500 mg) tablet,chewable 500 mg PO BID omeprazole 20 mg capsule,delayed release(DR/EC) 1 cap PO DAILY lorazepam 1 mg tablet 1 tab PO DAILY lorazepam 1 mg tablet 0.5 mg PO DAILY@1400 escitalopram oxalate 5 mg tablet 1 tab PO DAILY Cholestyramine Light 4 gram powder 3 ea PO DAILY Rx Instructions: give 3 teaspoons daily in the AM cholecalciferol (vitamin D3) 50 mcg (2,000 unit) capsule 1 cap PO DAILY lacosamide [Vimpat] 100 mg tablet 100 mg PO BEDTIME lorazepam 1 mg tablet 1.5 mg PO BEDTIME acetaminophen [Tylenol] 325 mg Tablet 325 mg PO Q6H PRN (Reason: Pain) cetirizine [Zyrtec] 10 mg Tablet 10 mg PO DAILY PRN (Reason: Allergy Symptoms) dextromethorphan-guaifenesin 10-100 mg/5 mL Syrup 5 ml PO Q4H PRN (Reason: Cough) omega 6-gdq-wri-fish oil [Fish Oil] 1,000 mg (120 mg-180 mg) Capsule 1 cap PO DAILY
[2022-08-14] MEDS: Ibuprofen 400 MG TABLET PO (22:59)
[2022-08-14 23:48] VITALS: BP 137/84; PULSE 74; RESP 16; TEMP 36.6; O2SAT 98
--- NOTE | 2022-08-15 | PC.NURSE ---
Giovani called at [id number] for a bls transfer back to nursing home.ETA within 30 mins.Rn aware
== END 2022-08-15 00:33 | disposition home or self-care (01) ==
PROVIDERS: Emergency Provider Emergency Medicine
DX: S09.90XA Unspecified injury of head, initial encounter (principal); W18.2XXA Fall in (into) shower or empty bathtub, initial encounter; Y93.E1 Activity, personal bathing and showering; Y92.041 Bathroom in boarding-house as the place of occurrence of the external cause; Y99.9 Unspecified external cause status
CPT/HCPCS: 70450; 72125; 99283; 99284